=== PATIENT | male | born 1950 | race Caucasian/White ===

== ENCOUNTER 2017-11-12 07:59 | Outpatient (CLI) | payer MEDICARE ==
[~2017-11-12] VITALS: Ht 182.9 cm; Wt 89.1 kg
--- NOTE | ~2017-11-12 | HEMODYNAMI ---
PATIENT:LEROY FLOREZ MEDICAL RECORD: [id number] : 46 [facility] [id number] ADMISSION DATE: 11/12/17 Generatedon:11/13/201711:09 Patient name: LEROY FLOREZ Patient #: [id number] SSN: : 1950 Date of study: 11/13/2017 Page: Of Hemodynamic Procedure Report Patient Data Patient Demographics Procedure consent was obtained First Name: LEROY Gender: Male Last Name: GAUTAM : 1950 [facility] Initial: L Age: 67 year(s) Patient #: [id number] Race: Unknown Additional ID: [id number] Contact details Address: [address] [place] [address] State: [place] City: [place] Zip code: [address] Past Medical History Allergies: No known allergies Admission Admission Data Admission Date: 11/12/2017 Admission Time: 7:59 Arrival Date: 11/12/2017 Arrival Time: 10:00 Admit Source: Other Insurance Payor: Medicare Room #: D.2117 Height (in.): 72 BSA: 2.11 (m2) Height (cm.): 182.88 BMI: 26.58 (kg/m2) Weight (lbs.): 196 Weight (kg.): 88.9 Lab Results Lab Result Date: 11/12/2017 Lab Result Time: 0:00 Biochemistry Name Units Result Min Max BUN mg/dl 15 --(--*-)-- 7 18 Creatinine mg/dl 0.9 --(-*--)-- 0.6 1.3 CBC Name Units Result Min Max Hemoglobin g/dl 13.5 --(*---)-- 13.5 17.5 Procedure Procedure Types Cath Procedure PCI Procedure Coronary Stent Coronary Stent Initial Procedure Description Procedure Date Procedure Date: 11/13/2017 Procedure Start Time: 10:56 Procedure End Time: 11:08 Procedure Staff Name Function Damian Huerta MD Performing Physician Sierra Eldridge RT Scrub Corin Martin RN Nurse Keith Aguiar RT Monitor Procedure Data Cath Procedure Fluoroscopy Diagnostic fluoroscopy Total fluoroscopy Time: 1.9 time: 1.9 min min Diagnostic fluoroscopy Total fluoroscopy dose: 409 dose: 409 mGy mGy Contrast Material Contrast Material Type Amount (ml) Isovue 300 56 Entry Location Entry Primary Successful Side Size Upsize Upsize Entry Closure Succes sful Closure Location (Fr) 1 (Fr) 2 (Fr) Remarks Device Remarks Femoral Right 6 Fr Exoseal artery Short Estimated blood loss: 10 ml Procedure Complications No complications Procedure Medications Medication Administration Route Dosage 0.9% NaCl I.V. ml/hr Oxygen NC 2 l/min Lidocaine 2% Heparin Flush Bag added to field 2 bags (1000units/500ml NS) Fentanyl I.V. 50 mcg Versed I.V. 1 mg Heparin Bolus I.V. 4000 units Fentanyl I.V. 50 mcg Hemodynamics Rest BSA: 2.11 (m2) HGB: 13.5 (g/dl) O2 Consumption: Estimated: 262.12 (ml/min) O2 Co nsumption indexed: Estimated:124.23 (ml/min/m) Heart Rate: 92 (bpm) Snapshots Pre Cath Intra NCS Post Cath Vital Signs Time Heart Resp SPO2 etCO2 NIBP (mmHg) Rhythm Pain Sedation Rate (ipm) (%) (mmHg) Status Level (bpm) 10:31:38 86 14 98 30.2 136/87(110) NSR 0 (11) 10(A) , No pain 10:35:45 89 16 98 32.4 140/96(120) NSR 0 (11) 10(A) , No pain 10:39:55 80 15 96 0 124/79(99) NSR 0 (11) 10(A) , No pain 10:44:05 83 15 96 0 126/74(96) NSR 0 (11) 10(A) , No pain 10:48:15 83 15 96 0 119/77(92) NSR 0 (11) 10(A) , No pain 10:52:25 81 16 96 8.2 124/72(101) NSR 0 (11) 10(A) , No pain 10:56:33 82 14 95 0 115/83(99) NSR 0 (11) 9(A) , No pain 11:00:38 82 16 95 0 120/78(96) NSR 0 (11) 9(A) , No pain 11:04:44 79 16 98 0 131/82(104) NSR 0 (11) 10(A) , No pain 11:08:54 82 13 97 1.5 133/87(111) NSR 0 (11) 10(A) , No pain Medications Time Medication Route Dose Verified Delivered Reason Notes Effectiveness by by 10:29:37 0.9% NaCl I.V. ml/hr Damian Coombs used for Deanna Martin RN procedure 10:29:45 Oxygen NC 2 Damian Turnery Per physician l/min Deanna Martin RN 10:29:53 Lidocaine 2% Damian Salgado for local Deanna Huerta MD anesthetic 10:29:59 Heparin Flush added 2 Damian Salgado used for Bag to bags Deanna Huerta MD procedure (1000units/500ml field NS) 10:55:40 Fentanyl I.V. 50 Damian Ervinfany for sedation mcg Deanna Martin RN 10:55:58 Versed I.V. 1 mg Damian Ervinfany for sedation Deanna Martin RN 10:58:53 Heparin Bolus I.V. 4000 Damian Ervinfany for verifi ed units Deanna Martin RN anticoagulation by 10:59:17 Fentanyl I.V. 50 Damian Coombs for sedation mcg Deanna Martin RN Procedure Log Time Note 10:15:14 Mariama Nayak RT(R) sent for patient. Start room use. 10:23:28 Patient Height : 72 inches 10:23:28 Patient Weight : 196 lbs 10:23:46 Informed consent obtained and on chart 10:24:20 Time tracking: Regular hours 10:24:24 Plan of Care:Hemodynamics will remain stable., Cardiac rhythm will remain stable., Comfort level will be maintained., Respiratory function will remain adequate., Patient/ family verbilizes understanding of procedure., Procedure tolerated without complication., Recovers from procedure without complications.. 10:24:28 Patient received from Med II to CCL 2 Alert and oriented. Tansferred to table in Supine position. 10:24:29 Warm blankets applied, and yaquelin hugger turned on for patient comfort. 10:24:30 Correct patient and procedure confirmed by team. 10:24:30 ECG and BP/O2 sat monitors applied to patient. 10:27:03 Vital chart was started 10:27:04 Baseline sample Acquired. 10:27:09 Full Disclosure recording started 10:27:14 H&P Date Dictated: 11/13/2017 Within 30 days and on chart., H&P Addendum completed by physician on day of procedure. (MUST COMPLETE FOR ALL OUTPATIENTS). 10:27:15 Pre-procedure instructions explained to patient. 10:27:16 Pre-op teaching completed and patient verbalized understanding. 10:27:17 Family in waiting room. 10:27:18 Patient NPO since Midnight. 10:27:23 Is the patient allergic to Iodine/contrast media? No. 10:27:24 Was the patient premedicated? No 10:27:53 Is patient on blood thinner?Yes 10:27:56 ACC The patient was administered the following blood thiners within the last 24 hours: ACCPlavix 10:27:57 Patient diabetic? No. 10:28:00 Previous problem with sedation/anesthesia? No ? 10:28:01 Snore? Yes 10:28:02 Sleep apnea? No 10:28:03 Deviated septum? No 10:28:03 Opens mouth fully? Yes 10:28:04 Sticks out tongue? Yes 10:28:06 Airway obstruction? No ? 10:28:10 Dentures? Yes in tight 10:28:34 Pre procedure: right dorsailis pedis pulse 2+ Normal; easily identifiable; not easily obliterated 10:28:38 Pre procedure: left dorsailis pedis pulse 2+ Normal; easily identifiable; not easily obliterated 10:28:52 Patient pain scale 0/10 ?. 10:29:04 IV patent on arrival in left forearm with 0.9% NaCl at O. 10:29:11 Lab results completed and on chart. 10:29:19 Right groin area was prepped with chlora-prep and draped in sterile fashion 10:29:20 Alarms reviewed by R. N. 10:29:20 Sharps counted by scrub and verified by R.N. 10:29:37 0.9% NaCl ml/hr I.V. was administered by Corin Martin RN; used for procedure; 10:29:45 Oxygen 2 l/min NC was administered by Corin Martin RN; Per physician; 10::53 Lidocaine 2% was administered by Damian Huerta MD; for local anesthetic; 10::59 Heparin Flush Bag (1000units/500ml NS) 2 bags added to field was administered by Damian Huerta MD; used for procedure; :53:58 Use device set CATH PACK 10:54:05 ACIST Syringe (82819) opened to sterile field. 10:54:06 ACIST Hand Control (89339) opened to sterile field. 10:54:06 ACIST Manifold (32489) opened to sterile field. 10:54:07 Medline Cath Pack ([id number]) opened to sterile field. 10:54:07 Bag Decanter (2002S) opened to sterile field. 10:54:08 DIAGNOSTIC WIRE .035 260cm J wire (904210) opened to sterile field. 10:54:10 INFLATOR Merit BasixCompak (VY4413) opened to sterile field. 10:54:11 SHEATH 6FR Chinqu[place]in (WFB094) opened to sterile field. 10:54:27 GUIDE 6FR XB 4.0 catheter ([id number]) opened to sterile field. 10:54:32 Baseline sample Acquired. 10:54:40 Rhythm: sinus rhythm 10:54:47 Physician arrived 10:54:48 --------ALL STOP TIME OUT------ 10:54:48 Final Timeout: patient, procedure, and site verified with staff and physician. All members of the team are in agreement. 10:54:49 Right groin site verified by team. 10:54:52 Physical assessment completed. ASA score P 2 - A patient with mild systemic disease as per Damian Huerta MD. 10:54:55 Sedation plan: IV Moderate Sedation Medication:Versed, Fentanyl 10:55:40 Fentanyl 50 mcg I.V. was administered by Corin Martin RN; for sedation; ::58 Versed 1 mg I.V. was administered by Corin Martin RN; for sedation; 10:56:24 Zero performed for pressure channel P1 10:56:31 Procedure started. 10:56:33 Local anesthetic to right femoral artery with Lidocaine 2% by Damian Huerta MD.INITIAL ACCESS ONLY 10:57:21 A 6 Fr Short sheath was inserted into the Right Femoral artery 10:57:32 6 Fr xb 4.0 guide catheter was inserted over the wire 10:58:53 Heparin Bolus 4000 units I.V. was administered by Corin Martin RN; for anticoagulation; verified by 10:59:17 Fentanyl 50 mcg I.V. was administered by Corin Martin RN; for sedation; 11:00:33 CHOICE PT Extra Support J 300cm guide wire ([id number]) opened to sterile field. 11:00:41 choice pt es wire advanced. 11:01:29 Wire advanced across lesion. 11:02:02 Inflation Number: 1 A STUART OTW 3.0 x 38 stent ([id number]) was prepped and advanced across the Mid CX. The stent was deployed at 15 CANDICE for 0:10 (min:sec). 11:02:31 Stent catheter was removed intact over wire. 11:02:31 Wire removed. 11:02:32 Guide catheter removed. 11:02:37 EXOSEAL 6Fr (EX600) opened to sterile field. 11:03:07 Sheath removed intact; hemostasis achieved with Exoseal to the Right Femoral artery. 11:03:09 Procedure ended.(Physican Out) 11:06:16 Fluoroscopy time 01.90 minutes. 11:06:20 Fluoroscopy dose: 409 mGy 11:06:20 Flurop Dose total: 409 11:06:23 Contrast amount:Isovue 300 56ml. 11:06:25 Sharps counted by scrub and verified by R.N. 11:06:26 Insertion/operative site no bleeding no hematoma. 11:06:29 Post-op/insertion site Right Femoral artery dressed using a 4 x 4 and Tegaderm. 11:06:36 Post right femoral artery:stable, soft, clean and dry 11:06:38 Post Procedure Pulses reassessed and unchanged 11:06:40 Post-procedure physical assessment completed. ASA score P 2 - A patient with mild systemic disease as per Damian Huerta MD. 11:06:42 Post procedure rhythm: unchanged. 11:06:45 Estimated blood loss: 10 ml 11:06:46 Post procedure instruction explained to patient.Patient verbalizes understanding. 11:06:47 Patient needs reinforcement of post procedure teaching. 11:07:18 Procedure type changed to Cath procedure, PCI procedure, Coronary Stent, Coronary Stent Initial 11:08:09 Procedure and supply charges have been captured, reviewed, submitted and are correct. 11:08:12 Procedure Complication : No complications 11:08:14 Vital chart was stopped 11:08:15 See physician's report for complete and final results. 11:08:17 Report given to PCU. 11:08:19 Patient transfered to PCU with Stretcher. 11:08:21 Procedure ended. 11:08:21 Full Disclosure recording stopped 11:08:27 End room use (Document Last) Intervention Summary Intervention Notes Time ActionType Lesion and Equipment Action# Pressure Duration Attributes Used 11:02:02 Place stent Mid CX STUART OTW 3.0 1 15 00:10 x 38 stent ([id number]) Device Usage Item Name Manufacture Quantity Catalog Number Hospital Part Current [facility] Lot# / Charge Number Stock Stock Serial# Code ACIST Syringe Acist 1 49298 171561 702889 132578 20 (31618) Medical Systems Inc ACIST Hand Acist 1 91823 164613 435860 535796 5 Control Medical (00871) Systems Inc ACIST Acist 1 24040 024572 582634 750668 5 Manifold Medical (60149) Systems Inc Medline Cath Cardinal 1 [id number] 599243 91615 209122 5 [facility] ([id number]) Bag Decanter Microtek 1 2001S 323965 18415 061060 5 (2001S) Medical Inc. DIAGNOSTIC St Juan 1 577554 249304 903275 718327 30 WIRE .035 260cm J wire (527287) INFLATOR Roseonly 1 WM1511 310509 497643 674559 15 [facility] BasixCompak (VZ5667) SHEATH 6FR Terumo 1 RKQ903 107336 953155 686583 40 Chinquapin (DFI174) GUIDE 6FR XB Cardinal 1 [id number] 800355 985601 121628 2 4.0 PathCentral (47121893) CHOICE PT Welsh 1 [id number] 963834 518648 463728 5 Extra Support Scientific J 300cm guide wire ([id number]) STUART OTW 3.0 Medtronic 1 [id number] 272003 7084184 062681 5 [id number] x 38 stent ([id number]) EXOSEAL 6Fr Cardinal 1 EX600 188655 570077 137212 10 (EX600) Health Signature Audit [place] Stage Time Signature Unsigned Intra-Procedure 11/13/2017 Keith Aguiar 11:09:16 AM RT(R) Signatures Monitor : Keith Aguiar RT Signature : Date : Time : [address] [address]
--- NOTE | ~2017-11-12 | OP ---
PATIENT NAME: LEROY FLOREZ MEDICAL RECORD: [id number] :46 LOCATION:D.CAT ADMISSION DATE: SURGEON: JACINTO PIERRE MD DATE OF OPERATION: 11/13/2017 PROCEDURES: 1. PTCA stent to left circumflex. 2. Selective coronary angiography. INDICATION: Angina and coronary artery disease. PROCEDURE IN DETAIL: After informed consent was obtained and after a detailed explanation of the risks, benefits as well as alternative therapies, the patient elected to proceed with angiogram and angioplasty. The right femoral area was prepped and draped in normal sterile fashion. The right femoral artery was cannulated via modified Seldinger technique with placement of a 6-Uzbek sheath. All catheters exchanged through this sheath. FINDINGS: The left circumflex has a long area of 80% stenosis in the proximal mid aspect. This was addressed with a 3.0 x 38 mm Avi stent. Result was 0% residual stenosis. OVERALL IMPRESSION: Successful percutaneous transluminal coronary angioplasty stent of the left circumflex going from 80% initial stenosis to 0% residual stenosis. TRANSINT:[id number] Voice Confirmation ID: [id number] DOCUMENT ID: [id number] JACINTO PIERRE MD at 1148 CC: [id number] DICTATION DATE: 11/13/[address] WORKER: 11/13/17 1223 DEP CLI 11/13/[address] [address]
--- NOTE | ~2017-11-12 | OP ---
PATIENT NAME: LEROY FLOREZ MEDICAL RECORD: [id number] :46 LOCATION:D.CAT ADMISSION DATE: SURGEON: JACINTO PIERRE MD DATE OF OPERATION: 11/12/2017 PROCEDURES: 1. PTCA stent LAD. 2. Intravascular ultrasound of the LAD. 3. Left heart catheterization. 4. Selective coronary angiography. 5. Left ventriculogram. INDICATION: Angina and coronary artery disease. PROCEDURE IN DETAIL: After informed consent was obtained and after a detailed explanation of risks, benefits as well as alternative therapies, the patient elected to proceed with angiogram and angioplasty. The right radial area is prepped and draped in normal sterile fashion. Right radial artery was cannulated via modified Seldinger technique with placement of 6-Setswana sheath. All catheters exchanged through this sheath. FINDINGS: Left ventriculogram was performed in standard 30-degree KHAN view, reveals global hypokinesis. Overall ejection fraction in the 30% range. SELECTIVE CORONARY ANGIOGRAPHY: 1. Left main showed no significant angiographic disease. 2. Left anterior descending has greater than 75% stenosis throughout the proximal aspect confirmed by intravascular ultrasound. 3. The left circumflex has 80% to 90% stenosis throughout the mid vessel. 4. The right coronary has 70% to 80% stenosis in the mid vessel. PTCA STENT OF THE LAD: The stent used is a 3.5 x 38 mm [place]. Result was 0% residual stenosis. OVERALL IMPRESSION: Successful percutaneous transluminal coronary angioplasty stent of the left anterior descending going from a long area of 75% to 80% initial stenosis to 0% residual stenosis. PLAN: PTCA stent of the left circumflex tomorrow and the RCA in the near future. TRANSINT:[id number] Voice Confirmation ID: [id number] DOCUMENT ID: [id number] JACINTO PIERRE MD at 1148 CC: [id number] DICTATION DATE: 11/12/17 1104 LEGAL RECRUITER: 11/12/17 1124 [facility] CLI 11/13/[address] [address]
--- NOTE | ~2017-11-12 | DS ---
PATIENT:LEROY FLOREZ :46 MEDICAL RECORD: [id number] DISCHARGE SUMMARY ADMISSION DATE: 11/12/17 DISCHARGE DATE: 11/13/17 DISCHARGE DIAGNOSES: 1. Unstable angina. 2. Coronary artery disease. 3. Percutaneous transluminal coronary angioplasty stent to left anterior descending and left circumflex this admission. HOSPITAL COURSE: This is a gentleman who presents with unstable anginal symptomatology, found to have 3-vessel coronary artery disease, underwent successful PTCA stent of the LAD and circumflex. Discharged home with the addition of aspirin and Plavix to his medical regimen. He will follow up with [facility] within the next week for PTCA stent of the RCA. TRANSINT:[id number] Voice Confirmation ID: [id number] DOCUMENT ID: [id number] JACINTO PIERRE MD at 1148 CC: [id number] DICTATION DATE: 11/13/17 1202 REWRITER: 11/13/17 1231 DEP CLI 11/13/17 [id number] [place] [address]
--- NOTE | ~2017-11-12 | HEMODYNAMI ---
PATIENT:LEROY FLOREZ MEDICAL RECORD: [id number] : 46 LOCATION:D.CAT ADMISSION DATE: 11/12/17 Generatedon:11/12/201711:06 Patient name: LEROY FLOREZ Patient #: [id number] SSN: : 1950 Date of study: 11/12/2017 Page: Of Hemodynamic Procedure Report Patient Data Patient Demographics Procedure consent was obtained First Name: LEROY Gender: Male Last Name: GAUTAM : 1950 Middle Initial: L Age: 67 year(s) Patient #: [id number] Race: Unknown Additional ID: [id number] Contact details Address: [address] [place] [address] State: [place] City: [place] Zip code: [address] Past Medical History Allergies: No known allergies Admission Admission Data Admission Date: 11/12/2017 Admission Time: 7:59 Arrival Date: 11/12/2017 Arrival Time: 10:00 Admit Source: Other Insurance Payor: Medicare Height (in.): 72 BSA: 2.11 (m2) Height (cm.): 182.88 BMI: 26.58 (kg/m2) Weight (lbs.): 196 Weight (kg.): 88.9 Lab Results Lab Result Date: 11/12/2017 Lab Result Time: 0:00 Biochemistry Name Units Result Min Max BUN mg/dl 15 --(--*-)-- 7 18 Creatinine mg/dl 0.9 --(-*--)-- 0.6 1.3 CBC Name Units Result Min Max Hemoglobin g/dl 13.5 --(*---)-- 13.5 17.5 Procedure Procedure Types Cath Procedure Diagnostic Procedure [facility] w/Coronaries FFR/IVUS Intra-Coronary IVUS Initial PCI Procedure Coronary Stent Coronary Stent Initial Miscellaneous Procedures Moderate Sedation up to 15 minutes Procedure Description Procedure Date Procedure Date: 11/12/2017 Procedure Start Time: 10:48 Procedure End Time: 11:05 Procedure Staff Name Function Damian Huerta MD Performing Physician Mariama Nayak RT Monitor Sierra Chente RT Scrub Corin Martin RN Nurse Procedure Data Cath Procedure Fluoroscopy Diagnostic fluoroscopy Total fluoroscopy Time: 3.8 time: 3.8 min min Diagnostic fluoroscopy Total fluoroscopy dose: dose: 1026 mGy 1026 mGy Contrast Material Contrast Material Type Amount (ml) Isovue 300 99 Entry Location Entry Primary Successful Side Size Upsize Upsize Entry Closure Thomson ccessful Closure Location (Fr) 1 (Fr) 2 (Fr) Remarks Device Remarks Radial Right 6 Fr Mechanical TR band artery Short Compression Estimated blood loss: 10 ml Diagnostic catheters Device Type Used For End Catheter Placement DIAGNOSTIC [place] 110cm 5 Procedure Fr catheter ([id number]) Procedure Complications No complications Procedure Medications Medication Administration Route Dosage 0.9% NaCl I.V. 100 ml/hr Oxygen NC 2 l/min Lidocaine 2% added to field 20 Heparin Flush Bag added to field 2 bags (1000units/500ml NS) Radial Cocktail added to field 1 syringe (Verapomil 2mg/Nitro 400mcg/Heparin 1500units) Fentanyl I.V. 50 mcg Versed I.V. 1 mg Fentanyl I.V. 50 mcg Versed I.V. 1 mg Heparin Bolus I.V. 4000 units Hemodynamics Rest BSA: 2.11 (m2) O2 Consumption: Estimated: 250.77 (ml/min) O2 Consumption indexed : Estimated:118.85 (ml/min/m) Heart Rate: 78 (bpm) Pressure Samples Time Site Value (mmHg) Purpose Heart Use Rate(bpm) 10:50 AO 68/29(47) Snapshot 78 Snapshots Pre Cath Intra NCS Post Cath Vital Signs Time Heart Resp SPO2 etCO2 NIBP (mmHg) Rhythm Pain Sedation Rate (ipm) (%) (mmHg) Status Level (bpm) 10:25:02 79 23 99 29.1 118/80(105) NSR 0 (11) 10(A) , No pain 10:29:10 82 20 98 27.6 114/76(101) NSR 0 (11) 10(A) , No pain 10:33:16 80 18 98 0 111/77(95) NSR 0 (11) 10(A) , No pain 10:37:22 80 17 97 0 96/74(84) NSR 0 (11) 10(A) , No pain 10:41:25 76 15 98 13.4 100/61(82) NSR 0 (11) 9(A) , No pain 10:45:27 78 15 96 23.1 106/69(91) NSR 0 (11) 9(A) , No pain 10:49:33 78 15 97 0 101/66(85) NSR 0 (11) 9(A) , No pain 10:53:37 79 14 95 0 98/63(79) NSR 0 (11) 9(A) , No pain 10:57:43 79 16 95 0 95/55(72) NSR 0 (11) 9(A) , No pain 11:01:42 76 14 96 0.7 102/69(83) NSR 0 (11) 10(A) , No pain 11:05:46 73 13 94 11.9 101/67(80) NSR 0 (11) 10(A) , No pain Medications Time Medication Route Dose Verified Delivered Reason Note s Effectiveness by by 10:24:26 0.9% NaCl I.V. 100 Damian Turnery used for ml/hr Deanna Martin RN procedure 10:24:37 Oxygen NC 2 l/min Damian Coombs Per physician Deanna Martin RN 10:24:44 Lidocaine 2% added 20ml Damian Damian for local to vial Deanna Huerta MD anesthetic field 10:24:51 Heparin Flush added 2 bags Damian Salgado used for Bag to Deanna Huerta MD procedure (1000units/500ml field NS) 10:25:43 Radial Cocktail added 1 Damian Damian for (Verapomil to syringe Deanna Huerta MD vasodilation 2mg/Nitro field 400mcg/Heparin 1500units) 10:39:06 Fentanyl I.V. 50 mcg Damian Ervinfany for sedation Deanna Martin RN 10:39:15 Versed I.V. 1 mg Damian Ervinfany for sedation Deanna Martin RN 10:46:36 Fentanyl I.V. 50 mcg Damian Ervinfany for sedation Deanna Martin RN 10:46:43 Versed I.V. 1 mg Damian Ervinfany for sedation Deanna Martin RN 10:54:42 Heparin Bolus I.V. 4000 Damian Corin for veri fied units Tauth MD Martin RN anticoagulation by Procedure Log Time Note 10:03:17 Mariama Nayak RT(R) sent for patient. Start room use. 10:03:19 Time tracking: Regular hours 10::23 Plan of Care:Hemodynamics will remain stable., Cardiac rhythm will remain stable., Comfort level will be maintained., Respiratory function will remain adequate., Patient/ family verbilizes understanding of procedure., Procedure tolerated without complication., Recovers from procedure without complications.. 10:16:15 Patient Height : 72 inches 10:16:18 Patient Weight : 196 lbs 10:16:18 Admit Source: Other 10:16:23 Insurance Payor : Medicare 10:16:32 Arrival Date: 11/12/2017 10:00:00 AM 10:20:13 Lab Result : Creatinine 0.9 mg/dl 10:20:13 Lab Result : BUN 15 mg/dl 10:20:13 Lab Result : Hemoglobin 13.5 g/dl 10:20:35 Patient received from Pre/Post Procedure Room to CCL 2 Alert and oriented. Tansferred to table in Supine position. 10:20:36 Warm blankets applied, and yaquelin hugger turned on for patient comfort. 10:20:37 Correct patient and procedure confirmed by team. 10:20:39 Signed procedure consent form obtained from patient. 10:20:40 ECG and BP/O2 sat monitors applied to patient. 10:20:52 H&P Date Dictated: 11/05/2017 Within 30 days and on chart., H&P Addendum completed by physician on day of procedure. (MUST COMPLETE FOR ALL OUTPATIENTS). 10:20:54 Pre-procedure instructions explained to patient. 10:20:58 Family in waiting room. 10:21:01 Patient NPO since Midnight. 10:21:10 Patient allergic to No known allergies 10:21:15 Is the patient allergic to Iodine/contrast media? No. 10:21:17 Was the patient premedicated? Yes 10:23:59 Vital chart was started 10:24:26 0.9% NaCl 100 ml/hr I.V. was administered by Corin Martin RN; used for procedure; 10:24:37 Oxygen 2 l/min NC was administered by Corin Martin RN; Per physician; 10:24:44 Lidocaine 2% 20ml vial added to field was administered by Damian Huerta MD; for local anesthetic; 10:24:48 ACC The patient was administered the following blood thiners within the last 24 hours: ACCPlavix 10:24:50 Patient diabetic? No. 10:24:51 Heparin Flush Bag (1000units/500ml NS) 2 bags added to field was administered by Damian Huerta MD; used for procedure; 10:24:53 Previous problem with sedation/anesthesia? No ? 10:24:54 Snore? Yes 10:24:55 Sleep apnea? No 10:24:56 Deviated septum? No 10:24:56 Opens mouth fully? Yes 10:24:57 Sticks out tongue? Yes 10:24:58 Airway obstruction? No ? 10:25:04 Dentures? Yes in tight 10:25:08 Pre procedure: right dorsailis pedis pulse 2+ Normal; easily identifiable; not easily obliterated 10:25:10 Pre procedure: left dorsailis pedis pulse 2+ Normal; easily identifiable; not easily obliterated 10:25:13 Patient pain scale 0/10 ?. 10:25:19 IV patent on arrival in left forearm with 0.9% NaCl at [facility]. 10:25:22 Lab results completed and on chart. 10:25:26 Right Radial & Right Groin area was prepped with chlora-prep and draped in sterile fashion 10:25:27 Alarms reviewed by R. N. 10:25:27 Sharps counted by scrub and verified by R.N. 10:25:43 Radial Cocktail (Verapomil 2mg/Nitro 400mcg/Heparin 1500units) 1 syringe added to field was administered by Damian Huerta MD; for vasodilation; 10:37:19 Zero performed for pressure channel P1 10:38:32 Physician paged 10:38:34 Physician arrived 10:38:35 --------ALL STOP TIME OUT------ 10:38:35 Final Timeout: patient, procedure, and site verified with staff and physician. All members of the team are in agreement. 10:38:39 Right Radial & Right Groin site verified by team. 10:38:44 Physical assessment completed. ASA score P 2 - A patient with mild systemic disease as per Damian Huerta MD. 10:38:47 Sedation plan: IV Moderate Sedation Medication:Versed, Fentanyl 10:39:06 Fentanyl 50 mcg I.V. was administered by Corin Martin RN; for sedation; 10:39:15 Versed 1 mg I.V. was administered by Corin Martin RN; for sedation; 10:39:26 Use device set Radial Dx or PCI 10:39:30 ACIST Syringe (55180) opened to sterile field. 10:39:31 Medline Cath Pack ([id number]) opened to sterile field. 10:39:32 Bag Decanter (2002S) opened to sterile field. 10:39:33 SHEATH 6FR Slender ([id number]) opened to sterile field. 10:39:35 DIAGNOSTIC WIRE .035 260cm J wire (693311) opened to sterile field. 10:39:38 Tegaderm 4 x 4 (1626W) opened to sterile field. 10:39:40 MBrace Wrist Support ([id number]) opened to sterile field. 10:39:42 NEEDLE Cook 21G 4cm Radial (M96753) opened to sterile field. 10:39:44 TR BAND Standard ([id number]) opened to sterile field. 10:46:36 Fentanyl 50 mcg I.V. was administered by Corin Martin RN; for sedation; 10:46:43 Versed 1 mg I.V. was administered by Corin Martin RN; for sedation; 10:47:59 Procedure started. 10:48:00 Full Disclosure recording started 10:48:42 Local anesthetic to right radial artery with Lidocaine 2% by Damian Huerta MD.INITIAL ACCESS ONLY 10:49:44 A DIAGNOSTIC [place] 110cm 5 Fr catheter ([id number]) was advanced over the wire and used for Procedure. 10:49:47 ACIST Hand Control (71527) opened to sterile field. 10:49:48 ACIST Manifold (51664) opened to sterile field. 10:50:50 EF : 35 % 10:50:56 LV hemodynamics recorded. 10:51:03 RCA angiography performed. 10:51:40 Catheter removed. 10:52:04 GUIDE 5FR EBU 3.5 catheter (AI0IEM35) opened to sterile field. 10:52:14 LCA angiography performed. 10:54:07 Proceeding to intervention. 10:54:42 Heparin Bolus 4000 units I.V. was administered by Corin Martin RN; for anticoagulation; verified by 10:55:15 CHOICE PT Extra Support 182cm wire ([id number]) opened to sterile field. 10:55:16 INFLATOR Merit BasixCompak (ZM4327) opened to sterile field. 10:55:17 [place] IVUS Catheter (98121C) opened to sterile field. 10:55:35 choice pt ex wire advanced. 10:55:37 Wire advanced across lesion. 10:55:42 IVUS catheter advanced over wire. 10:56:38 IVUS catheter removed over wire. 10:59:42 Inflation Number: 1 A STUART RX 3.5 x 38 stent ([id number]) was prepped and advanced across the Prox LAD. The stent was deployed at 17 CANDICE for 0:13 (min:sec). 11:02:57 A 6 Fr Short sheath was inserted into the Right Radial artery 11:02:57 Sheath removed intact; hemostasis achieved with Mechanical Compression to the Right Radial artery. 11:03:06 Procedure ended.(Physican Out) 11:03:19 Fluoroscopy time 03.80 minutes. 11:03:26 Fluoroscopy dose: 1026 mGy 11:03:26 Flurop Dose total: 1026 11:03:32 Contrast amount:Isovue 300 99ml. 11:03:33 Sharps counted by scrub and verified by R.N. 11:03:36 TR band inflated with 13cc of air. 11:03:37 Insertion/operative site no bleeding no hematoma. 11:03:42 Post Procedure Pulses reassessed and unchanged 11:03:48 Post-procedure physical assessment completed. ASA score P 2 - A patient with mild systemic disease as per Damian Huerta MD. 11:03:52 Post procedure rhythm: unchanged. 11:03:55 Estimated blood loss: 10 ml 11:03:59 Post procedure instruction explained to patient.Patient verbalizes understanding. 11:04:46 Procedure type changed to Cath procedure, Diagnostic procedure, LHC, LHC w/Coronaries, FFR/IVUS, Intra-Coronary IVUS Initial, PCI procedure, Coronary Stent, Coronary Stent Initial, Miscellaneous Procedures, Moderate Sedation up to 15 minutes 11:04:48 Procedure and supply charges have been captured, reviewed, submitted and are correct. 11:05:15 Procedure Complication : No complications 11:05:17 Vital chart was stopped 11:05:18 See physician's report for complete and final results. 11:05:20 Report given to Pre/Post Procedure Room. 11:05:23 Patient transfered to Pre/Post Procedure Room with Stretcher. 11:05:25 Procedure ended. 11:05:25 Full Disclosure recording stopped 11:05:39 End room use (Document Last) Intervention Summary Intervention Notes Time ActionType Lesion and Equipment Used Action# Pressure Duration Attributes 10:59:[address] stent Prox LAD STUART RX 3.5 x 1 17 00:13 38 stent ([id number]) Device Usage Item Name Manufacture Quantity Catalog Number Hospital Part Current M inimal Lot# / Charge Number Stock Stock Serial# Code ACIST Syringe Acist 1 50693 695969 601321 795006 2 0 (38490) Medical Systems Inc Medline Cath Cardinal 1 [id number] 930515 39310 469064 5 Oneexchangestreet ([id number]) Bag Decanter Microtek 1 075175 24542 432829 5 () Medical Inc. SHEATH 6FR Terumo 1 [id number] 777799 245227 845847 4 0 Slender ([id number]) DIAGNOSTIC [place] 1 231988 676270 494521 339066 3 0 WIRE .035 260cm J wire (468682) Tegaderm 4 x 4 3M 1 1626W 586544 231761 940234 5 (1626W) MBrace Wrist Advanced 1 140-0250-00 071780 87500 596878 5 Support Vascular ([id number]) Dynamics NEEDLE Ramesys (e-Business) Services Medical 1 F10062 537071 320587 900345 5 21G 4cm Radial (F42148) TR BAND Terumo 1 NAT24-VPO 552483 322147 962370 4 0 Standard ([id number]) DIAGNOSTIC Terumo 1 40-0263 737018 638186 701890 5 [place] 110cm 5 Fr catheter (455600) ACIST Hand Acist 1 73126 372351 766701 069281 5 Control Medical (91326) Systems Inc ACIST Manifold Acist 1 26718 083375 812584 398996 5 (21557) Medical Systems Inc GUIDE 5FR EBU Medtronic 1 [id number] 733959 971604 778175 1 3.5 catheter ([id number]) CHOICE PT [place] 1 [id number] 330543 419406 828654 5 Extra Support Scientific 182cm wire ([id number]) INFLATOR Merit Merit 1 VX9916 803493 762641 627359 1 5 [facility] (QW7924) [place] 1 64855T 515852 246190 302120 8 [place] IVUS Catheter (53360W) STUART RX 3.5 x Medtronic 1 [id number] 592334 7881096 011432 5 [id number] 38 stent ([id number]) Signature Audit [place] Stage Time Signature Unsigned Intra-Procedure 11/12/2017 Mariama Nayak 11:06:13 AM RT(R) Signatures Monitor : Mariama Nayak Signature : RT Date : Time : [place] [id number] [facility] [address]
[2017-11-12] MEDS ORDERED: PLAVIX75 MG PO (08:41)
[2017-11-12 08:47] VITALS: BP 123/78; BMI 26.6
[2017-11-12 09:08] LABS: HEMATOCRIT 38.6 % (42.0-54.0); HEMOGLOBIN 13.5 g/dL (13.5-17.5); LYMPHOCYTES 25.7 % (15-50); MCV 88.5 fL (80.0-100.0); MEAN PLATELET VOLUME 8.6 fL (7.4-10.4); NEUTROPHILS 61.3 % (40-80); PLATELET COUNT 221 10x3/uL (130-400); RBC 4.36 10x6/uL (4.20-6.10); RDW 12.8 % (11.5-14.5); WBC 5.3 10x3/uL (4.8-10.8)
[2017-11-12 09:30] LABS: CALC OSMOLALITY 277 mosm/kg (275-300); CALCIUM 8.7 mg/dL (8.5-10.1); CARBON DIOXIDE 24.3 mmol/L (21.0-32.0); CHLORIDE - SERUM 105 mmol/L (98-107); CREATININE - SERUM 0.9 mg/dL (0.6-1.3); GLUCOSE 118 mg/dL (74-106); POTASSIUM - SERUM 4.3 mmol/L (3.5-5.1); SODIUM 138 mmol/L (136-145); UREA NITROGEN 15 mg/dL (7-18); eGFR NON AFRICAN AMERICAN 89 mL/min (90-120)
[2017-11-12 13:29] VITALS: BP 130/80; Ht 182.9 cm; Wt 89.1 kg
[2017-11-12 20:00] VITALS: BP 120/64
[2017-11-13] VITALS: BP 113/76
[2017-11-13 04:00] VITALS: BP 109/72
[2017-11-13 09:10] VITALS: BP 133/84
[2017-11-13 12:16] VITALS: BP 146/85
[2017-11-13] MEDS ORDERED: ASPIRIN81 MG PO (13:33)
== END 2017-11-13 15:39 | disposition home or self-care (01) ==
LOC: D.M2 07:59 → D.CATH 07:59 → D.M2 13:00 → D.CATH 11-13 15:39
PROVIDERS: Internal Medicine Interventional Cardiology
DX: I25.119 Atherosclerotic heart disease of native coronary artery with unspecified angina pectoris (principal); R06.09 Other forms of dyspnea; Z01.812 Encounter for preprocedural laboratory examination
CPT/HCPCS: 93458; 92978; C9600 ×2

== ENCOUNTER 2017-11-18 07:40 | Outpatient (CLI) | payer MEDICARE ==
[~2017-11-18] VITALS: Ht 182.9 cm; Wt 89.1 kg
--- NOTE | ~2017-11-18 | HEMODYNAMI ---
PATIENT:LEROY FLOREZ MEDICAL RECORD: [id number] : 46 LOCATION:D.CAT ADMISSION DATE: 11/18/17 Generatedon:11/18/201710:54 Patient name: LEROY FLOREZ Patient #: [id number] SSN: : 1950 Date of study: 11/18/2017 Page: Of Hemodynamic Procedure Report Patient Data Patient Demographics Procedure consent was obtained First Name: LEROY Gender: Male Last Name: GAUTAM : 1950 Middle Initial: L Age: 67 year(s) Patient #: [id number] Race: Unknown Additional ID: [id number] Contact details Address: [address] [place] [address] State: [place] City: [place] Zip code: [address] Past Medical History Allergies: No known allergies Admission Admission Data Admission Date: 11/18/2017 Admission Time: 7:40 Lab Results Lab Result Date: 11/12/2017 Lab Result Time: 0:00 Biochemistry Name Units Result Min Max BUN mg/dl 15 --(--*-)-- 7 18 Creatinine mg/dl 0.9 --(-*--)-- 0.6 1.3 CBC Name Units Result Min Max Hemoglobin g/dl 13.5 --(*---)-- 13.5 17.5 Procedure Procedure Types Cath Procedure Diagnostic Procedure [facility] w/Coronaries PCI Procedure Coronary Stent Coronary Stent Initial Miscellaneous Procedures Moderate Sedation up to 15 minutes Procedure Description Procedure Date Procedure Date: 11/18/2017 Procedure Start Time: 10:34 Procedure End Time: 10:53 Procedure Staff Name Function Damian Huerta MD Performing Physician Mariama Nayak RT Monitor Miri Castillo RN Nurse Sierra Eldridge RT Scrub Procedure Data Cath Procedure Fluoroscopy Diagnostic fluoroscopy Total fluoroscopy Time: 3.5 time: 3.5 min min Diagnostic fluoroscopy Total fluoroscopy dose: 303 dose: 303 mGy mGy Contrast Material Contrast Material Type Amount (ml) Isovue 300 52 Entry Location Entry Primary Successful Side Size Upsize Upsize Entry Closure Thomson ccessful Closure Location (Fr) 1 (Fr) 2 (Fr) Remarks Device Remarks Radial Right 6 Fr Mechanical artery Short Compression Estimated blood loss: 10 ml Procedure Complications No complications Procedure Medications Medication Administration Route Dosage Oxygen NC 2 l/min Lidocaine 2% added to field 20 Heparin Flush Bag added to field 2 bags (1000units/500ml NS) 0.9% NaCl I.V. 100 ml/hr Radial Cocktail I.A. 1 syringe (Verapomil 2mg/Nitro 400mcg/Heparin 1500units) Versed I.V. 1 mg Fentanyl I.V. 50 mcg Versed I.V. 1 mg Fentanyl I.V. 50 mcg Heparin Bolus I.V. 4000 units Hemodynamics Rest HGB: 13.5 (g/dl) Heart Rate: 77 (bpm) Snapshots Pre Cath Intra NCS Post Cath Vital Signs Time Heart Resp SPO2 etCO2 NIBP Rhythm Pain Sedation Rate (ipm) (%) (mmHg) (mmHg) Status Level (bpm) 10:24:27 80 19 98 29.4 124/73(99) NSR 0 (11) 10(A) , No pain 10:28:37 81 16 99 35.4 118/79(93) NSR 0 (11) 10(A) , No pain 10:32:45 77 15 95 0 106/72(93) NSR 0 (11) 10(A) , No pain 10:36:53 78 16 95 27.1 95/62(73) NSR 0 (11) 9(A) , No pain 10:40:57 75 17 94 27.9 84/61(78) NSR 0 (11) 9(A) , No pain 10:45:43 80 16 95 28.6 99/62(83) NSR 0 (11) 9(A) , No pain 10:49:45 76 15 95 28.6 112/72(90) NSR 0 (11) 10(A) , No pain 10:53:45 0 No Cuff NSR 0 (11) 10(A) , No pain Medications Time Medication Route Dose Verified Delivered Reason Notes Effectiveness by by 10:24:37 Oxygen NC 2 l/min Damian Chery used for Deanna Castillo marketing financial analyst 10:24:43 Lidocaine 2% added 20ml Damian Salgado for local to vial Deanna Huerta MD anesthetic field 10:24:51 Heparin Flush added 2 bags Damian Salgado used for Bag to Deanna Huerta MD procedure (1000units/500ml field NS) 10:24:59 0.9% NaCl I.V. 100 Damian Chery Per ml/hr Deanna Castillo RN physician 10:32:21 Versed I.V. 1 mg Damian Chery for sedation Deanna Castillo RN 10:32:27 Fentanyl I.V. 50 mcg Damian Chery for sedation Deanna Castillo RN 10:35:16 Radial Cocktail I.A. 1 Damian Salgado for (Verapomil syringe Deanna Huerta MD vasodilation 2mg/Nitro 400mcg/Heparin 1500units) 10:35:21 Versed I.V. 1 mg Damian Chery for sedation Deanna Castillo RN 10:35:25 Fentanyl I.V. 50 mcg Damian Chery for sedation Deanna Castillo RN 10:36:08 Heparin Bolus I.V. 4000 Damian Chery for sedation verifie d units Deanna Castillo RN with dr huerta Procedure Log Time Note 10:14:51 Diagnostic Cath Status : Elective 10:15:12 Miri Castillo RN sent for patient. Start room use. 10:15:13 Time tracking: Regular hours 10:15:18 Plan of Care:Hemodynamics will remain stable., Cardiac rhythm will remain stable., Comfort level will be maintained., Respiratory function will remain adequate., Patient/ family verbilizes understanding of procedure., Procedure tolerated without complication., Recovers from procedure without complications.. 10:15:53 Patient received from Pre/Post Procedure Room to [facility] 2 Alert and oriented. Tansferred to table in Supine position. 10:15:55 Warm blankets applied, and yaquelin hugger turned on for patient comfort. 10:15:55 Correct patient and procedure confirmed by team. 10:15:57 Signed procedure consent form obtained from patient. 10:18:06 ECG and BP/O2 sat monitors applied to patient. 10:23:25 Vital chart was started 10:24:37 Oxygen 2 l/min NC was administered by Miri Castillo RN; used for procedure; 10:24:43 Lidocaine 2% 20ml vial added to field was administered by Damian Huerta MD; for local anesthetic; 10:24:51 Heparin Flush Bag (1000units/500ml NS) 2 bags added to field was administered by Damian Huerta MD; used for procedure; 10:24:59 0.9% NaCl 100 ml/hr I.V. was administered by Miri Castillo RN; Per physician; 10:30:30 Baseline sample Acquired. 10:30:31 Baseline sample Acquired. 10:30:35 Rhythm: sinus rhythm 10:30:37 Full Disclosure recording started 10:30:48 H&P Date Dictated: 11/14/2017 Within 30 days and on chart., H&P Addendum completed by physician on day of procedure. (MUST COMPLETE FOR ALL OUTPATIENTS). 10:30:50 Pre-procedure instructions explained to patient. 10:30:51 Family in waiting room. 10:30:53 Patient NPO since Midnight. 10:30:59 Patient allergic to No known allergies 10:31:02 Is the patient allergic to Iodine/contrast media? No. 10:31:04 Was the patient premedicated? Yes 10:31:05 Is patient on blood thinner?Yes 10:31:08 ACC The patient was administered the following blood thiners within the last 24 hours: ACCPlavix 10:31:10 Patient diabetic? No. 10:31:14 Snore? Yes 10:31:16 Sleep apnea? No 10:31:25 Patient pain scale 0/10 ?. 10:31:33 IV patent on arrival in left forearm with 0.9% NaCl at KVO. 10:31:47 Lab results completed and on chart. 10:31:51 Right Radial & Right Groin area was prepped with chlora-prep and draped in sterile fashion 10:31:52 Alarms reviewed by R. N. 10:31:52 Sharps counted by scrub and verified by R.N. 10:31:54 Physician paged 10:31:54 Physician arrived 10:31:55 --------ALL STOP TIME OUT------ 10:31:55 Final Timeout: patient, procedure, and site verified with staff and physician. All members of the team are in agreement. 10:31:58 Right Radial & Right Groin site verified by team. 10:32:03 Physical assessment completed. ASA score P 2 - A patient with mild systemic disease as per Damian Huerta MD. 10:32:07 Sedation plan: IV Moderate Sedation Medication:Versed, Fentanyl 10:32:21 Versed 1 mg I.V. was administered by Miri Castillo RN; for sedation; 10:32:27 Fentanyl 50 mcg I.V. was administered by Miri Castillo RN; for sedation; 10:32:32 Use device set Radial Dx or PCI 10:32:39 PCI Cath status Elective 10:32:42 ACIST Syringe (49052) opened to sterile field. 10:32:42 Medline Cath Pack ([id number]) opened to sterile field. 10:32:43 Bag Decanter (2002S) opened to sterile field. 10:32:44 SHEATH 6FR Slender ([id number]) opened to sterile field. 10:32:45 DIAGNOSTIC WIRE .035 260cm J wire (566271) opened to sterile field. 10:32:46 ACIST Hand Control (15403) opened to sterile field. 10:32:47 ACIST Manifold (88739) opened to sterile field. 10:32:48 Tegaderm 4 x 4 (1626W) opened to sterile field. 10:32:48 MBrace Wrist Support ([id number]) opened to sterile field. 10:33:11 GUIDE 6FR HS II SH catheter ([id number]) opened to sterile field. 10:33:16 Procedure started. 10:34:36 Local anesthetic to right radial artery with Lidocaine 2% by Damian Huerta MD.INITIAL ACCESS ONLY 10:34:45 A 6 Fr Short sheath was inserted into the Right Radial artery 10:35:03 6 Fr HS2 SH guide catheter was inserted over the wire 10:35:14 Zero performed for pressure channel P1 10:35:16 Radial Cocktail (Verapomil 2mg/Nitro 400mcg/Heparin 1500units) 1 syringe I.A. was administered by Damian Huerta MD; for vasodilation; 10:35:21 Versed 1 mg I.V. was administered by Miri Castillo RN; for sedation; 10:35:25 Fentanyl 50 mcg I.V. was administered by Miri Castillo RN; for sedation; 10:35:28 Zero performed for pressure channel P1 10:35:42 Zero performed for pressure channel P1 10:36:07 Zero performed for pressure channel P1 10:36:08 Heparin Bolus 4000 units I.V. was administered by Miri Castillo RN; for sedation; verified with dr huerta 10:36:25 Zero performed for pressure channel P1 10:38:01 Guide catheter removed. 10:38:32 GUIDE 6FR AR 2.0 SH catheter ([id number]) opened to sterile field. 10:39:11 Brinkley [place] Eagleye IVUS Catheter (96008C) opened to sterile field. 10:39:12 INFLATOR Merit BasixCompak (QT1292) opened to sterile field. 10:39:12 CHOICE PT Extra Support 182cm wire ([id number]) opened to sterile field. 10:39:40 6 Fr AR2 SH guide catheter was inserted over the wire 10:42:44 choice pt wire advanced. 10:43:12 Wire advanced across lesion. 10:43:19 IVUS catheter advanced over wire. 10:47:48 Inflation Number: 1 A STUART RX 3.0 x 18 stent ([id number]) was prepped and advanced across the Mid RCA. The stent was deployed at 17 CANDICE for 0:08 (min:sec). 10:47:56 Stent catheter was removed intact over wire. 10:47:57 Wire removed. 10:47:57 Guide catheter removed. 10:48:08 TR BAND Standard ([id number]) opened to sterile field. 10:50:40 Sheath removed intact; hemostasis achieved with Mechanical Compression to the Right Radial artery. 10:50:43 Procedure ended.(Physican Out) 10:51:06 Fluoroscopy time 03.50 minutes. 10:51:13 Flurop Dose total: 303 10:51:13 Fluoroscopy dose: 303 mGy 10:51:17 Contrast amount:Isovue 300 52ml. 10:51:18 Sharps counted by scrub and verified by R.N. 10:51:26 TR band inflated with 11cc of air. 10:51:27 Insertion/operative site no bleeding no hematoma. 10:51:31 Post Procedure Pulses reassessed and unchanged 10:51:34 Post-procedure physical assessment completed. ASA score P 2 - A patient with mild systemic disease as per Damian Huerta MD. 10:51:38 Post procedure rhythm: unchanged. 10:51:40 Estimated blood loss: 10 ml 10:51:42 Post procedure instruction explained to patient.Patient verbalizes understanding. 10:52:31 Procedure type changed to Cath procedure, Diagnostic procedure, LHC, LHC w/Coronaries, PCI procedure, Coronary Stent, Coronary Stent Initial, Miscellaneous Procedures, Moderate Sedation up to 15 minutes 10:52:31 Procedure and supply charges have been captured, reviewed, submitted and are correct. 10:53:17 Procedure Complication : No complications 10:53:20 Vital chart was stopped 10:53:23 Report given to Pre/Post Procedure Room. 10:53:27 Patient transfered to Pre/Post Procedure Room with Stretcher. 10:53:29 Procedure ended. 10:53:29 Full Disclosure recording stopped 10:53:32 End room use (Document Last) Intervention Summary Intervention Notes Time ActionType Lesion and Equipment Used Action# Pressure Duration Attributes 10:47:48 Place stent Mid RCA STUART RX 3.0 x 1 17 00:08 18 stent ([id number]) Device Usage Item Name Manufacture Quantity Catalog Number Hospital Part Current M inimal Lot# / Charge Number Stock Stock Serial# Code ACIST Syringe Acist 1 [id number] [id number] 391226 494408 2 0 (10094) Medical Systems Inc Medline Cath Cardinal 1 [id number] 054720 23434 816148 5 [facility] ([id number]) Bag Decanter Microtek 1 2001S 466322 45786 060103 5 (2001S) Medical Inc. SHEATH 6FR Terumo 1 [id number] 769288 749368 502260 4 0 Slender ([id number]) DIAGNOSTIC St Juan 1 691056 786554 774260 015469 3 0 WIRE .035 260cm J wire (227690) ACIST Hand Acist 1 45073 831897 831587 101983 5 Control Medical (08937) Systems Inc ACIST Manifold Acist 1 39974 780286 842577 133299 5 (56552) Medical Systems Inc Tegaderm 4 x 4 3M 1 1626W 895888 078777 392425 5 (1626W) MBrace Wrist Advanced 1 140-0250-00 612691 75529 793575 5 Support Vascular ([id number]) Dynamics GUIDE 6FR HS Medtronic 1 [id number] 523524 11974 909772 1 II SH catheter ([id number]) GUIDE 6FR AR Medtronic 1 [id number] 272733 46269 342052 1 2.0 SH catheter ([id number]) Brinkley Brinkley 1 70181W 645018 853719 240624 8 [place] Eagleye IVUS Catheter (11355B) INFLATOR Merit Merit 1 [id number] 278830 636285 405564 1 5 Ambio HealthnmTiqIQ Medical (SJ2858) CHOICE PT [place]quel 1 [id number] 101266 132381 569890 5 Extra Support Scientific 182cm wire ([id number]) STUART RX 3.0 x Medtronic 1 [id number] 243890 4508260 721371 5 [id number] 18 stent ([id number]) TR BAND Terumo 1 [id number] 260477 662335 053850 4 0 Standard ([id number]) Signature Audit [place] Stage Time Signature Unsigned Intra-Procedure 11/18/2017 Mariama Nayak 10:54:07 AM RT(R) Signatures Monitor : Mariama Nayak Signature : RT Date : Time : [facility] [address] [place] [address]
--- NOTE | ~2017-11-18 | HP ---
PATIENT: LEROY FLOREZ MEDICAL RECORD: [id number] ACCOUNT: [id number] LOCATION:[place] : 46 ADMISSION DATE: 11/18/17 HISTORY AND PHYSICAL EXAMINATION ADMITTING DIAGNOSES: 1. Angina. 2. Coronary artery disease. 3. Recent percutaneous transluminal coronary angioplasty stent to left anterior descending with concomitant disease, RCA. 4. Hypertension. 5. Hyperlipidemia. HISTORY OF PRESENT ILLNESS: This is a gentleman who presents with anginal symptomatology, found to have significant disease of all 3 vessels, underwent PTCA stent of the LAD and circumflex, now brought back for PTCA stent of the RCA in a staged fashion. REVIEW OF SYSTEMS: The patient reports easy bruising but reports no swollen glands. The patient reports no fever, no night sweats, no significant weight gain, no significant weight loss. No significant exercise tolerance. The patient reports no dry eyes, no irritation, no vision change. Patient reports no difficulty hearing and no ear pain. Patient reports no frequent nose bleeds or nose and sinus problems. Patient reports on arm pain on exertion. No shortness of breath while lying down. No history of heart murmur. Patient reports no cough, no wheezing or coughing up blood. Patient reports no abdominal pain, no vomiting. Normal appetite. No diarrhea and not vomiting blood. No nausea and no constipation. Patient reports no incontinence. No difficulty urinating. No hematuria. No increased frequency. Patient reports no muscle aches. No weakness, no arthralgias, no back pain. No swelling of the extremities. Patient reports no abnormal mole, no jaundice, no rashes. Reports no loss of consciousness. No weakness and no numbness. No seizures, dizziness, or headaches. The patient reports no depression, no sleep disturbance, feeling safe in a relationship and no alcohol abuse. Patient reports on fatigue. Reports no runny nose or sinus pressure. No itching, no hives, and no frequent sneezing. PHYSICAL EXAMINATION: GENERAL APPEARANCE: Well-nourished, well-developed, appears stated age. Level of distress, comfortable. PSYCHIATRIC: Mental status, alert, normal affect. Orientation, oriented to time, place and person. EYES: Lids and conjunctiva, noninjected. No discharge, no pallor. ENT: Lips, teeth, gums, normal dentition. Oropharynx, no cyanosis, no pallor. NECK: Carotid arteries, bilateral normal upstroke, no bruits, no thrills. JUGULAR VEINS: No jugular venous pressure or distention. CERVICAL LYMPH NODES: Nontender, nonenlarged. THYROID: Not enlarged. Nontender. No nodules. LUNGS: Respiratory effort, unlabored. CHEST: Normal curvature. No thoracic deformity. No chest wall tenderness. Percussion, resonant. Auscultation, clear. No wheezes, no rales, no rhonchi. CARDIOVASCULAR: Precordial exam, nondisplaced. No heaves or pericardial thrills. Rate and rhythm, regular. Heart sounds, normal S1, normal S2. No S3, no gallop, no rub. Systolic murmur, not heard. Diastolic murmur, not heard. EXTREMITIES: No cyanosis, no edema. Peripheral pulses, full and equal in all HISTORY AND PHYSICAL [id number] LEROY FLOREZ extremities, except as noted. No bruits appreciated. ABDOMEN: Soft, nondistended. Normal aorta. No bruit. Nontender. No masses. Liver, nontender, no hepatomegaly. Spleen, nontender, no splenomegaly. MUSCULOSKELETAL: No joint tenderness. No joint swelling. No erythema. NEUROLOGICAL: Normal gait, normal strength, normal tone. SKIN: Warm and dry. OVERALL IMPRESSION: Anginal symptomatology with significant disease of the right coronary artery. We will proceed with percutaneous transluminal coronary angioplasty stent of the right coronary artery. TRANSINT:[id number] Voice Confirmation ID: [id number] DOCUMENT ID: [id number] JACINTO PIERRE MD CC: [id number] DICTATION DATE: 11/18/17 1009 FISH ICER: 11/18/[address] [facility] [address] [place] [address]
--- NOTE | ~2017-11-18 | OP ---
PATIENT NAME: LEROY FLOREZ MEDICAL RECORD: [id number] :46 LOCATION:D.CAT ADMISSION DATE: SURGEON: JACINTO PIERRE MD DATE OF OPERATION: 11/18/2017 PROCEDURES: 1. PTCA stent RCA. 2. Intravascular ultrasound. 3. Selective coronary angiography. INDICATION: Angina and coronary artery disease. PROCEDURE IN DETAIL: After informed consent was obtained and after detailed explanation of risks, benefits as well as alternative therapies, the patient elected to proceed with angiogram and angioplasty. The right radial area was prepped and draped in normal sterile fashion. Right radial artery was cannulated via modified Seldinger technique with placement of 6-Icelandic sheath. All catheters exchanged through this sheath. FINDINGS: The right coronary has multiple previously placed stents. There is 75% to 80% stenosis after the previously placed stents confirmed by intravascular ultrasound. This was addressed with a 3.0 x 18 mm Jackson stent. Result was 0% residual stenosis. OVERALL IMPRESSION: Successful percutaneous transluminal coronary angioplasty stent of the right coronary artery going from 75% initial stenosis to 0% residual stenosis. TRANSINT:[id number] Voice Confirmation ID: [id number] DOCUMENT ID: [id number] JACINTO PIERRE MD CC: [id number] DICTATION DATE: 11/18/17 1048 GARAGEMAN: 11/18/17 1105 REG [facility] [address] [place] [id number]
[~2017-11-18 07:40] MED LIST: ASPIRIN81 MG PO; PLAVIX75 MG PO
[2017-11-18 08:01] VITALS: BP 124/77; Ht 182.9 cm; Wt 89.1 kg
[2017-11-18 08:22] LABS: BASOPHILS 0.3 % (0-2); EOSINOPHILS 3.3 % (0-7); HEMATOCRIT 41.8 % (42.0-54.0); HEMOGLOBIN 14.3 g/dL (13.5-17.5); IMMATURE GRANULOCYTES 0.2 % (0-5); LYMPHOCYTES 23.7 % (15-50); MCH 31.4 pg (26.0-34.0); MCHC 34.2 g/dL (31.0-37.0); MCV 91.7 fL (80.0-100.0); MEAN PLATELET VOLUME 9.5 fL (7.4-10.4); MONOCYTES 10.5 % (2-11); PLATELET COUNT 209 10x3/uL (130-400); RBC 4.56 10x6/uL (4.20-6.10); RDW 13.2 % (11.5-14.5); WBC 5.8 10x3/uL (4.8-10.8)
[2017-11-18 08:37] LABS: CALC OSMOLALITY 277 mosm/kg (275-300); CALCIUM 9.4 mg/dL (8.5-10.1); CARBON DIOXIDE 22.3 mmol/L (21.0-32.0); CHLORIDE - SERUM 105 mmol/L (98-107); GLUCOSE 123 mg/dL (74-106); POTASSIUM - SERUM 4.6 mmol/L (3.5-5.1); SODIUM 138 mmol/L (136-145); UREA NITROGEN 16 mg/dL (7-18); eGFR NON AFRICAN AMERICAN 79 mL/min (90-120)
== END 2017-11-18 15:00 | disposition home or self-care (01) ==
LOC: D.CATH 07:40
PROVIDERS: Internal Medicine Interventional Cardiology
DX: I25.119 Atherosclerotic heart disease of native coronary artery with unspecified angina pectoris (principal); I10 Essential (primary) hypertension; E78.5 Hyperlipidemia, unspecified; Z01.812 Encounter for preprocedural laboratory examination; Z95.5 Presence of coronary angioplasty implant and graft
CPT/HCPCS: 92978; C9600

== ENCOUNTER 2018-11-30 10:05 | Inpatient (IN) | payer MEDICARE ==
[~2018-11-30] VITALS: Ht 182.9 cm; Wt 84.8 kg
--- NOTE | ~2018-11-30 | EC ---
PATIENT:LEROY FLOREZ DATE OF SERVICE: 11/30/18 SEX: M MEDICAL RECORD: [id number] DATE OF : 46 LOCATION:D.M2 D.212 AGE OF PATIENT: 68 ADMISSION DATE: 11/30/18 REFERRING PHYSICIAN: INTERPRETING PHYSICIAN: JACINTO HUERTA MD ECHOCARDIOGRAM REPORT ECHO CHARGES 4 ECHO COMPLETE Date: 11/30/18 CLINICAL DIAGNOSIS: SOB ECHOCARDIOGRAPHIC MEASUREMENTS (adult normal given) AC root (d.<3.7cm) 3.2 cm LV Septum d (<1.2 cm> 0.7 cm Valve Excursion 1.7 cm LV Septum (systole) 1.1 cm Left Atria (s.<4.0cm> 3.7 cm LVPW d(<1.2cm) 1.0 cm RV (d.<2.3cm) 3.0 cm LVPW (sytole) 1.8 cm LV diastole(<5.6CM) 5.0 cm MV E-F(>70mm/sec) cm LV systole 3.7 cm LVOT Diameter 1.8 cm MV exc.(>10mm) cm Est.ejection fraction (50-75%) % DOPPLER: LVIT cm/sec A 32 cm/sec E 95 cm/sec LA cm/sec RVSP 31.2 mmHg LVOT 41 cm/sec AOP1/2T m/s Asc. Ao 77 cm/sec RVOT 48 cm/sec RA cm/sec PA 53 cm/sec AV Gradient Peak 2.4 mmHg AV Mean 1.3 mmHg AV Area 1.3 cm MV Gradient Peak 3.4 mmHg MV Mean 1.5 mmHg MV Area cm COMMENTS: Chief Dispatcher Service: Adriel CRANDALLSENTHIL SALONI Emulsion Operator: 1 Dr. Huerta TAPE# PACS Pericardial Effusion N DATE OF SERVICE: 11/30/2018 PROCEDURE: Echocardiogram. FINDINGS: 1. Left ventricular chamber size is dilated. Left ventricular systolic function is markedly reduced, overall ejection fraction 10% to 15%. 2. Left atrium, right atrium, and right ventricle chamber sizes are upper limits of normal. 3. Valvular structures have normal structure and motion. ECHOCARDIOGRAM REPORT [id number] LEROY FLOREZ 4. Doppler interrogation reveals severe mitral regurgitation, moderate tricuspid regurgitation, no other valvular insufficiency or stenosis. Pulmonary systolic pressure is estimated at 31 mmHg. 5. No evidence of pericardial effusion or left ventricular thrombus. TRANSINT:[id number] Voice Confirmation ID: [id number] DOCUMENT ID: [id number] JACINTO HUERTA MD CC: [id number] DICTATION DATE: 12/01/18 1139 NANOTECHNOLOGY TECHNICIAN: 12/01/18 1226 ADM [address] [place] [address] [place] [address]
--- NOTE | ~2018-11-30 | HEMODYNAMI ---
PATIENT:LEROY FLOREZ MEDICAL RECORD: [id number] : 46 [address] [id number] ADMISSION DATE: 11/30/18 Generatedon:12/01/201815:40 Patient name: LEROY FLOREZ Patient #: [id number] SSN: : 1950 Date of study: 12/01/2018 Page: Of Hemodynamic Procedure Report Patient Data Patient Demographics Procedure consent was obtained First Name: LEROY Gender: Male Last Name: GAUTAM : 1950 [facility] Initial: L Age: 68 year(s) Patient #: [id number] Race: Unknown Additional ID: [id number] Contact details Address: [address] [place] [address] State: [place] City: [place] Zip code: [address] Past Medical History Allergies: No known allergies Admission Admission Data Admission Date: 11/30/2018 Admission Time: 11:15 Room #: [facility] Procedure Procedure Types Cath Procedure Diagnostic Procedure LHC LHC w/Coronaries FFR/IVUS Intra-Coronary IVUS Initial Sedation Charges Moderate Sedation up to 15 minutes PCI Procedure Coronary Stent Coronary Stent Initial PTCA PTCA Initial Procedure Description Procedure Date Procedure Date: 12/01/2018 Procedure Start Time: 15:21 Procedure End Time: 15:40 Procedure Staff Name Function Damian Huerta MD Performing Physician Zaira Krishna RT Monitor Miri Castillo RN Nurse Keith Aguiar RT Scrub Procedure Data Cath Procedure Fluoroscopy Diagnostic fluoroscopy Total fluoroscopy Time: 5.4 time: 5.4 min min Diagnostic fluoroscopy Total fluoroscopy dose: 895 dose: 895 mGy mGy Contrast Material Contrast Material Type Amount (ml) Isovue 300 113 Entry Location Entry Primary Successful Side Size Upsize Upsize Entry Closure Thomson ccessful Closure Location (Fr) 1 (Fr) 2 (Fr) Remarks Device Remarks Radial Right 6 Fr Mechanical artery Short Compression Estimated blood loss: 10 ml Diagnostic catheters Device Type Used For End Catheter Placement DIAGNOSTIC [place] 110cm 5 LV Angiography Fr catheter ([id number]) DIAGNOSTIC [place] 110cm 5 Right Coronary Fr catheter ([id number]) Angiography Procedure Complications No complications Procedure Medications Medication Administration Route Dosage Oxygen etCO2 Nasal cannula 2 l/min Lidocaine 2% added to field 20 Heparin Flush Bag added to field 2 bags (1000units/500ml NS) 0.9% NaCl I.V. 100 ml/hr Radial Cocktail I.A. 1 syringe (Verapomil 2mg/Nitro 400mcg/Heparin 1500units) Versed I.V. 1 mg Fentanyl I.V. 25 mcg Heparin Bolus I.V. 4000 units Integrilin (Bolus I.V. 7.9 ml 2mg/ml) Plavix P.O. 600 mg Hemodynamics Rest Heart Rate: 65 (bpm) Snapshots Pre Cath Intra NCS Post Cath Vital Signs Time Heart Resp SPO2 etCO2 NIBP (mmHg) Rhythm Pain Sedation Rate (ipm) (%) (mmHg) Status Level (bpm) 15:18:12 64 23 97 0 124/76(101) NSR 0 (11) 10(A) , No pain 15:22:30 64 19 94 0 120/66(92) NSR 0 (11) 10(A) , No pain 15:26:44 59 17 93 15.8 109/57(80) NSR 0 (11) 9(A) , No pain 15:30:56 60 18 95 9 113/61(86) NSR 0 (11) 9(A) , No pain 15:35:10 58 17 94 24.9 111/66(89) NSR 0 (11) 9(A) , No pain 15:39:24 58 18 95 0 117/61(88) NSR 0 (11) 10(A) , No pain Medications Time Medication Route Dose Verified Delivered Reason Not es Effectiveness by by 15:18:06 Oxygen etCO2 2 l/min Damian Chery used for Nasal Deanna Castillo RN procedure cannula 15:18:12 Lidocaine 2% added 20ml Damian Salgado for local to vial Deanna Huerta MD anesthetic field 15:18:18 Heparin Flush added 2 bags Damian Salgado used for Bag to Deanna Huerta MD procedure (1000units/500ml field NS) 15:18:27 0.9% NaCl I.V. 100 Damian Magoie Per physician ml/hr Deanna Castillo RN 15:20:15 Versed I.V. 1 mg Damian Chery for sedation Deanna Castillo RN 15:20:22 Fentanyl I.V. 25 mcg Damian Chery for sedation Deanna Castillo RN 15:22:38 Radial Cocktail I.A. 1 Damian christianson (Verapomil syringe Deanna Huerta MD vasodilation 2mg/Nitro 400mcg/Heparin 1500units) 15:27:55 Heparin Bolus I.V. 4000 Damian christianson shawn ified units Deanna Castillo RN anticoagulation with dr huerta 15:29:39 Integrilin I.V. 7.9 ml Damian christianson Was leanna (Bolus 2mg/ml) Deanna Castillo RN antiplatelet 2.1 ml therapy of vial 15:37:58 Plavix P.O. 600 mg Damian Castillo RN antiplatelet therapy Procedure Log Time Note 15:02:48 Miri Castillo RN sent for patient. Start room use. 15:02:49 Time tracking: Regular hours (M-F 7:00 - 5:00) 15:02:53 Plan of Care:Hemodynamics will remain stable., Cardiac rhythm will remain stable., Comfort level will be maintained., Respiratory function will remain adequate., Patient/ family verbilizes understanding of procedure., Procedure tolerated without complication., Recovers from procedure without complications.. 15:08:20 Patient received from Med II to CCL 1 Alert and oriented. Tansferred to table in Supine position. 15:08:21 Warm blankets applied, and yaquelin hugger turned on for patient comfort. 15:08:22 Correct patient and procedure confirmed by team. 15:08:23 Signed procedure consent form obtained from patient. 15:08:24 ECG and BP/O2 sat monitors applied to patient. 15:17:10 Vital chart was started 15:17:13 Rhythm: sinus rhythm 15:17:14 Full Disclosure recording started 15:17:20 H&P Date Dictated: 12/01/2018 Within 30 days and on chart.. 15:17:22 Pre-procedure instructions explained to patient. 15:17:22 Pre-op teaching completed and patient verbalized understanding. 15:17:24 Family in patients room. 15:17:25 Patient NPO since Midnight. 15:17:29 Patient allergic to No known allergies 15:17:31 Is the patient allergic to Iodine/contrast media? No. 15:17:32 Is patient on blood thinner?No 15:17:34 Patient diabetic? No. 15:17:43 Previous problem with sedation/anesthesia? No ? 15:17:44 Snore? Yes 15:17:45 Sleep apnea? No 15:17:46 Deviated septum? No 15:17:46 Opens mouth fully? Yes 15:17:47 Sticks out tongue? Yes 15:17:50 Airway obstruction? No ? 15:17:53 Dentures? Yes in 15:17:56 Pre procedure: right dorsailis pedis pulse 2+ Normal; easily identifiable; not easily obliterated 15:18:00 Modified Sarabjit's test Ulnar < 7 seconds 15:18:01 Patient pain scale 0/10 ?. 15:18:06 Oxygen 2 l/min etCO2 Nasal cannula was administered by Miri Castillo RN; used for procedure; 15:18:08 IV patent on arrival in right forearm with 0.9% NaCl at [facility]. 15:18:10 Lab results completed and on chart. 15:18:12 Lidocaine 2% 20ml vial added to field was administered by Damian Huerta MD; for local anesthetic; 15:18:18 Heparin Flush Bag (1000units/500ml NS) 2 bags added to field was administered by Damian Huerta MD; used for procedure; 15:18:18 Right Radial & Right Groin area was prepped with chlora-prep and draped in sterile fashion 15:18:24 Alarms reviewed by R. N. 15:18:24 Sharps counted by scrub and verified by R.N. 15:18:26 Final Timeout: patient, procedure, and site verified with staff and physician. All members of the team are in agreement. 15:18:27 0.9% NaCl 100 ml/hr I.V. was administered by Miri Castillo RN; Per physician; 15:18:28 Right Radial site verified by team. 15:18:31 Maximum allowable Isovue 300 dose 300ml. Physician notified. (300ml for normal creatinines. For patients with creatinine of 1.7 or higher multiply weight(kg) x 5 divided by creatinine.) 15:18:34 Fire Safety Assessment: A--An alcohol-based skin anteseptic being used preoperatively., C--Open oxygen or nitrous oxide is being used., D--An ESU, laser, or fiber-optic light is being used. 15:18:37 Physical assessment completed. ASA score P 2 - A patient with mild systemic disease as per Damian Huerta MD. 15:18:39 Sedation plan: IV Moderate Sedation Medication:Versed, Fentanyl 15:20:15 Versed 1 mg I.V. was administered by Miri Castillo RN; for sedation; 15:20:22 Fentanyl 25 mcg I.V. was administered by Miri Castillo RN; for sedation; 15:21:02 Use device set Radial Dx or PCI 15:21:07 Zero performed for pressure channel P1 15:21:12 Procedure started. 15:21:16 Local anesthetic to right radial artery with Lidocaine 2% by Damian Huerta MD.INITIAL ACCESS ONLY 15:21:33 A 6 Fr Short sheath was inserted into the Right Radial artery 15:21:36 Baseline sample Acquired. 15:21:53 ACIST Syringe (82512) opened to sterile field. 15:21:53 Medline Cath Pack ([id number]) opened to sterile field. 15:21:54 Bag Decanter (2002) opened to sterile field. 15:21:54 DIAGNOSTIC WIRE .035 260cm J wire (219327) opened to sterile field. 15:21:55 ACIST Hand Control (56616) opened to sterile field. 15:21:55 ACIST Manifold (90617) opened to sterile field. 15:21:56 Tegaderm 4 x 4 (1626W) opened to sterile field. 15:21:56 MBrace Wrist Support ([id number]) opened to sterile field. 15:21:58 SHEATH 6FR Slender (48-1060) opened to sterile field. 15:22:38 Radial Cocktail (Verapomil 2mg/Nitro 400mcg/Heparin 1500units) 1 syringe I.A. was administered by Damian Huerta MD; for vasodilation; 15:23:48 A DIAGNOSTIC [place] 110cm 5 Fr catheter (579279) was advanced over the wire and used for LV Angiography. 15:23:51 LV gram done using KHAN 15:23:55 Injector settings: Ml/sec: 5, Volume: 15, 15:24:01 EF : 20 % 15:24:12 A DIAGNOSTIC [place] 110cm 5 Fr catheter (827799) was advanced over the wire and used for Right Coronary Angiography. 15:24:34 Catheter removed. 15::58 Use device set DEANNA PCI 15:25:02 CHOICE PT Extra Support 182cm wire ([id number]) opened to sterile field. 15:25:04 GUIDE 6FR XBLAD 3.5 catheter (12756714) opened to sterile field. 15:25:07 INFLATOR Merit BasixCompak (RO0215) opened to sterile field. 15:25:31 6 Fr XBLAD 3.5 guide catheter was inserted over the wire 15:26:43 LCA angiography performed. 15:27:47 Minoa Clifton Eagleye IVUS Catheter (36477G) opened to sterile field. 15:27:55 Heparin Bolus 4000 units I.V. was administered by Miri Castillo RN; for anticoagulation; verified with dr huerta 15:28:07 CHOICE PT ES wire advanced. 15:28:10 IVUS catheter advanced over wire. 15:28:28 IVUS pass to LAD lesion performed. 15:29:39 Integrilin (Bolus 2mg/ml) 7.9 ml I.V. was administered by Miri Castillo RN; for antiplatelet therapy; Wasted 2.1 ml of vial 15:30:09 IVUS catheter removed over wire. 15::58 Procedure type changed to Cath procedure, Diagnostic procedure, LHC, LHC w/Coronaries, FFR/IVUS, Intra-Coronary IVUS Initial, Sedation Charges, Moderate Sedation up to 15 minutes, PCI procedure, Coronary Stent, Coronary Stent Initial, PTCA, PTCA Initial 15:32:05 Place stent Inflation Number: 1 A INTEGRITY RX 2.5 x 26 stent ([id number]) was prepped and advanced across the Dist LAD. The stent was deployed at 17 CANDICE for 0:12 (min:sec). 15:32:28 Stent catheter was removed intact over wire. 15:32:29 Wire removed. 15:32:29 Guide catheter removed. 15:33:24 6 Fr AR 1 guide catheter was inserted over the wire 15:33:56 GUIDE 6FR AR 1.0 catheter ([id number]) opened to sterile field. 15:34:09 CHOICE PT ES wire advanced. 15:35:09 Inflate balloon Inflation number: 1 A EUPHORA 3.5 x 20 Balloon ([id number]) was prepped and advanced across the Mid RCA, then inflated to 21 CANDICE for 0:17 (min:sec). 15:35:37 Inflation number: 2 The EUPHORA 3.5 x 20 Balloon ([id number]) was reinflated across the Mid RCA, to 21 CANDICE for 0:05 (min:sec). 15:35:55 Balloon removed over the wire. 15:35:55 Wire removed. 15:35:56 Guide catheter removed. 15:36:10 Sheath removed intact; hemostasis achieved with Mechanical Compression to the Right Radial artery. 15:36:12 Procedure ended.(Physican Out) 15:36:59 Fluoroscopy time 05.40 minutes. 15:37:04 Fluoroscopy dose: 895 mGy 15:37:04 Flurop Dose total: 895 15:37:07 Contrast amount:Isovue 300 113ml. 15:37:08 Sharps counted by scrub and verified by R.N. 15:37:09 Insertion/operative site no bleeding no hematoma. 15:37:25 Post left brachial artery:stable, clean and dry 15:37:26 Post Procedure Pulses reassessed and unchanged 15:37:28 Post-procedure physical assessment completed. ASA score P 2 - A patient with mild systemic disease as per Damian Huerta MD. 15:37:30 Post procedure rhythm: unchanged. 15:37:33 Estimated blood loss: 10 ml 15:37:34 Post procedure instruction explained to patient.Patient verbalizes understanding. 15:37:35 Patient needs reinforcement of post procedure teaching. 15:37:39 Procedure Complication : No complications 15:37:41 See physician's report for complete and final results. 15:37:58 Plavix 600 mg P.O. was administered by Miri Castillo RN; for antiplatelet therapy; 15:38:23 TR band inflated with 11cc of air. 15:38:29 TR BAND Standard ([id number]) opened to sterile field. 15:40:05 Procedure and supply charges have been captured, reviewed, submitted and are correct. 15:40:09 Vital chart was stopped 15:40:11 Report given to PCU. 15:40:14 Patient transfered to PCU with Bed. 15:40:22 Procedure ended. 15:40:22 Full Disclosure recording stopped 15:40:25 End room use (Document Last) Intervention Summary Intervention Notes Time ActionType Lesion and Equipment Action# Pressure Duration Attributes Used 15:32:05 Place stent Dist LAD INTEGRITY RX 1 17 00:13 2.5 x 26 stent ([id number]) 15:35:09 Inflate Mid RCA EUPHORA 3.5 1 21 00:17 balloon x 20 Balloon ([id number]) 15:35:37 Reinflate Mid RCA EUPHORA 3.5 2 21 00:05 balloon x 20 Balloon ([id number]) Device Usage Item Name Manufacture Quantity Catalog Number Hospital Part Current Mini mal Lot# / Charge Number Stock Stock Serial# Code ACIST Acist 1 64068 633075 316213 327280 20 Syringe Medical (59826) Systems Inc Medline Cath Medline 1 [id number] 145988 62559 676178 5 Pack ([id number]) Bag Decanter Microtek 1 2001S 701424 78462 235926 5 (2001S) Medical Inc. DIAGNOSTIC [place] 1 057176 385117 753764 824801 30 WIRE .035 260cm J wire (052927) ACIST Hand Acist 1 31024 807379 144578 867988 5 Control Medical (11870) Systems Inc ACIST Acist 1 97517 836829 279786 673396 5 Manifold Medical (69407) Systems Inc Tegaderm 4 x 3M 1 1626W 845769 152319 676479 5 4 (1626W) MBrace Wrist Advanced 1 140-0250-00 500678 60066 838435 5 Support Vascular (080991806) Dynamics SHEATH 6FR Terumo 1 [id number] 569583 723507 233146 5 Slender (80-1060) DIAGNOSTIC Terumo 1 40-1923 657265 781023 434085 5 [place] 110cm 5 Fr catheter (029010) CHOICE PT [place] 1 [id number] 656112 545921 934586 5 Extra Scientific Support 182cm wire (1697559X6) GUIDE 6FR Cardinal 1 [id number] 269646 737506 134790 10 XBLAD 3.5 Health catheter (21124966) INFLATOR Merit 1 FV4193 714486 610760 462573 15 [facility] Medical BasixCompak (YE9852) Minoa Minoa 1 97228Y 955473 777868 387188 8 Clifton Eagleye IVUS Catheter (82048G) INTEGRITY RX Medtronic 1 [id number] 105660 346442 298088 5 [id number] 2.5 x 26 stent ([id number]) GUIDE 6FR AR Medtronic 1 [id number] 489205 56931 266061 1 1.0 catheter (XC6QY38) EUPHORA 3.5 Medtronic 1 [id number] 838996 823558 600933 5 [id number] x 20 Balloon ([id number]) TR BAND Terumo 1 [id number] 445213 560680 271306 40 Standard ([id number]) Signature Audit Lolita Stage Time Signature Unsigned Intra-Procedure 12/01/2018 Zaira 3:40:38 PM Counts RT(R) Signatures Monitor : Zaira Signature : Counts RT Date : Time : [place] [id number] [facility] [place] [address]
--- NOTE | ~2018-11-30 | OP ---
PATIENT NAME: LEROY FLOREZ MEDICAL RECORD: [id number] :46 LOCATION:[address] ADMISSION DATE:11/30/18 SURGEON: JACINTO PIERRE MD DATE OF OPERATION: 12/01/2018 PROCEDURES: 1. PTCA and stent, LAD. 2. PTCA, RCA. 3. Intravascular ultrasound. 4. Left heart catheterization. 5. Selective coronary angiography. 6. Left ventriculogram. INDICATION: Angina and coronary artery disease. PROCEDURE IN DETAIL: After informed consent was obtained with detailed description of risks and benefits as well as alternative therapies, the patient elected to proceed with angiogram and angioplasty. The right radial area was prepped and draped in normal sterile fashion. The right radial artery was cannulated via modified Seldinger technique with placement of 6-Chadian sheath. All catheters were exchanged through this sheath. FINDINGS: Left ventriculogram performed in standard 30-degree KHAN view reveals good cardiac wall motion throughout all segments. Left ventricular chamber size is dilated. Left ventricular systolic function is markedly reduced. Overall ejection fraction in the 25% range. SELECTIVE CORONARY ANGIOGRAPHY: 1. Left main is with no significant angiographic disease. 2. Left anterior descending has previously placed stents. These are widely patent with no significant restenosis; however, there is greater than 70% stenosis in the mid vessel, confirmed by intravascular ultrasound. 3. Left circumflex has mild irregularities, but no flow-limiting stenosis. 4. Right coronary has previously placed stents with 70% in-stent restenosis in the mid vessel. PTCA AND STENT OF THE LAD: The stent used was a 2.5 x 26 mm Integrity. Result was 0% residual stenosis. PTCA OF THE RCA: The in-stent restenosis of the RCA was addressed with a 3.5 balloon, taken to 21 atmospheres. Result was 0% residual stenosis. OVERALL IMPRESSION: Successful PTCA and stent of the LAD, going from 70% initial stenosis to 0% residual. Successful PTCA for in-stent restenosis of the RCA, going from 70% initial stenosis to 0% residual. TRANSINT:[id number] Voice Confirmation ID: [id number] DOCUMENT ID: [id number] OPERATIVE REPORT [id number] LEROY FLOREZ JEFFREY MD CC: [id number] DICTATION DATE: 12/01/18 1543 DEVULCANIZER TENDER: 12/01/18 1844 ADM IN [place] [id number] [place] [address]
[2018-11-30] MEDS ORDERED: LOPRESSOR25 MG PO (10:10)
[2018-11-30] MEDS ORDERED: VOLTAREN75 MG PO (10:10)
[2018-11-30] MEDS ORDERED: COMBIVENT RESPIM4 GM INH (10:10)
[2018-11-30 10:34] LABS: BASOPHILS 0.6 % (0-2); EOSINOPHILS 2.1 % (0-7); HEMATOCRIT 45.2 % (42.0-54.0); HEMOGLOBIN 15.3 g/dL (13.5-17.5); IMMATURE GRANULOCYTES 0.4 % (0-5); LYMPHOCYTES 22.1 % (15-50); MCH 31.4 pg (26.0-34.0); MCHC 33.8 g/dL (31.0-37.0); MCV 92.6 fL (80.0-100.0); MEAN PLATELET VOLUME 10.1 fL (7.4-10.4); MONOCYTES 8.7 % (2-11); NEUTROPHILS 66.1 % (40-80); PLATELET COUNT 231 10x3/uL (130-400); RBC 4.88 10x6/uL (4.20-6.10); RDW 13.9 % (11.5-14.5); WBC 8.5 10x3/uL (4.8-10.8)
[2018-11-30 10:42] LABS: APTT 31.7 SECONDS (22.8-39.4); INR 1.15 (0.85-1.17); PROTIME 14.2 SECONDS (11.6-15.0)
[2018-11-30 10:48] LABS: ALBUMIN 3.8 g/dL (3.4-5.0); ALKALINE PHOSPHATASE 89 U/L (46-116); ALT (SGPT) 198 U/L (10-68); BILIRUBIN - TOTAL 0.81 mg/dL (0.2-1.3); CALC OSMOLALITY 292 mosm/kg (275-300); CALCIUM 8.9 mg/dL (8.5-10.1); CARBON DIOXIDE 23.6 mmol/L (21.0-32.0); CHLORIDE - SERUM 107 mmol/L (98-107); CREATININE - SERUM 1.5 mg/dL (0.6-1.3); GLUCOSE 145 mg/dL (74-106); POTASSIUM - SERUM 5.2 mmol/L (3.5-5.1); PROTEIN - SERUM 8.3 g/dL (6.4-8.2); SODIUM 143 mmol/L (136-145); UREA NITROGEN 27 mg/dL (7-18); eGFR NON AFRICAN AMERICAN 49 mL/min (90-120)
[2018-11-30 10:59] LABS: CKMB 1.8 U/L (0.0-3.6); CREATINE KINASE 83 UL (21-232); PRO BNP 2747 pg/mL (0-125); TROPONIN-I 0.028 ng/mL (0.000-0.060)
[2018-11-30 12:46] VITALS: BP 119/81
[2018-11-30 13:35] VITALS: BP 128/74
[2018-11-30 16:13] VITALS: BP 119/58
--- NOTE | 2018-11-30 16:55 | NUR ---
PT PROVIDED WITH DINNER TRAY. VOICED NO OTHER NEEDS AT THIS TIME.
--- NOTE | 2018-11-30 17:44 | NUR ---
PT VOIDED 600ML CLEAR YELLOW URINE
--- NOTE | 2018-11-30 18:32 | NUR ---
RECIEVED FROM ER. ALERT AND ORIENTED. TELEMERTY SHOWS SR 77 WITH BBB. RIGHT WRIST SL 20 BRIE. DENIES ANY NEEDS. WILL MONITOR
[2018-11-30 18:34] VITALS: BP 119/78; BMI 26.9
--- NOTE | 2018-11-30 18:39 | NUR ---
ASSESSMENT COMPLETE AAOX4 RESP UNLABORED ON ROOM AIR TELEMETRY SR 1ST DEGREE BLOCK W/BBB RATE 77 PT DENIES ANY PAIN OR DISCOMFORT NAD NOTED
[2018-11-30 19:55] VITALS: BP 107/60
--- NOTE | 2018-11-30 22:00 | NUR ---
INITIAL ROUNDS COMPLETED AT 1914 HRS. PT DENIED ANY DISCOMFORT. ASSESSMENT COMPLETED AT 2039 HRS. VSS. SR WITH BBB PER CM HR 69. IV TO RFA SL. LUNGS CTA. SARAH. PALPABLE PERIPHERAL PULSES. PM MEDS GIVEN. PT CURRENTLY READING A BOOK. SR UP X2, CALL LIGHT WITHIN REACH.
--- NOTE | 2018-12-01 00:26 | NUR ---
PT RESTING WITH EYES CLOSED. RESP EVEN AND REGULAR. SR UP X2, CALL LIGHT WITHIN REACH.
--- NOTE | 2018-12-01 02:22 | NUR ---
PT RESTING WITH EYES CLOSED. RESP EVEN AND REGULAR. SR UP X2, CALL LIGHT WITHIN REACH.
[2018-12-01 03:50] VITALS: BP 100/57
--- NOTE | 2018-12-01 04:26 | NUR ---
PT RESTING WITH EYES EYES CLOSED. RESP EVEN AND REGULAR. SR UP X2, CALL LIGHT WITHIN REACH.
--- NOTE | 2018-12-01 06:41 | NUR ---
VSS THORUGHOUT NIGHT. SR WITH BBB PER CM. NPO FOR [facility] TODAY. NEEDS MET; WILL CONTINUE TO MONITOR.
--- NOTE | 2018-12-01 07:15 | NUR ---
ROUNDING DONE WITH PATIENT RESTING ON SIDE, EYES CLOSED. RESP ARE EVEN. ON ROOM AIR. ON HEART MONITOR SHOWING SR W BBB, HR 62. RIGHT WIRST PIV SEEN WITH SALINE LOCK. NPO STATUS.
[2018-12-01 07:58] LABS: BASOPHILS 0.4 % (0-2); EOSINOPHILS 3.5 % (0-7); HEMATOCRIT 38.4 % (42.0-54.0); HEMOGLOBIN 13.3 g/dL (13.5-17.5); IMMATURE GRANULOCYTES 0.2 % (0-5); LYMPHOCYTES 16.8 % (15-50); MCH 31.5 pg (26.0-34.0); MCHC 34.6 g/dL (31.0-37.0); MEAN PLATELET VOLUME 9.9 fL (7.4-10.4); MONOCYTES 7.4 % (2-11); NEUTROPHILS 71.7 % (40-80); PLATELET COUNT 199 10x3/uL (130-400); RBC 4.22 10x6/uL (4.20-6.10); WBC 8.3 10x3/uL (4.8-10.8)
[2018-12-01 08:07] LABS: ANION GAP 12.6 mmol/L (8-16); CALCIUM 8.9 mg/dL (8.5-10.1); CARBON DIOXIDE 27.5 mmol/L (21.0-32.0); CREATININE - SERUM 1.2 mg/dL (0.6-1.3); MAGNESIUM - SERUM 1.9 mg/dL (1.8-2.4)
[2018-12-01 08:08] LABS: POTASSIUM - SERUM 4.1 mmol/L (3.5-5.1)
[2018-12-01 08:28] VITALS: BP 115/70
--- NOTE | 2018-12-01 10:38 | NUR ---
DENIES NEEDS AT THIS TIME. STILL NPO FOR HEART CATH.
--- NOTE | 2018-12-01 10:54 | HP ---
PATIENT: LEROY CRUZ MEDICAL RECORD: [id number] ACCOUNT: [id number] LOCATION:[address] : [birth year] ADMISSION DATE: 11/30/18 PCP: KEELY FLETCHER DO HISTORY AND PHYSICAL EXAMINATION DIAGNOSES: 1. Unstable angina. 2. Coronary artery disease. 3. Previous PTCA and stents, 3 vessels, October of 2017. 4. Shortness of breath and dyspnea on exertion. 5. COPD. 6. Smoking history. 7. Hypertension. HISTORY: Mr. Cruz presents with shortness of breath and chest pain for the past 3 days. Chest x-ray is compatible with mild pulmonary edema and congestive heart failure. He does have history of coronary artery disease. Last cardiac intervention was in October of 2017, 3-vessel PTCA and stents. His EKG is with no acute ST-T abnormalities. PHYSICAL EXAMINATION: GENERAL APPEARANCE: Well-nourished, well-developed, appears stated age. Level of distress, comfortable. PSYCHIATRIC: Mental status, alert, normal affect. Orientation, oriented to time, place and person. EYES: Lids and conjunctiva, noninjected. No discharge, no pallor. ENT: Lips, teeth, gums, normal dentition. Oropharynx, no cyanosis, no pallor. NECK: Carotid arteries, bilateral normal upstroke, no bruits, no thrills. JUGULAR VEINS: No jugular venous pressure or distention. CERVICAL LYMPH NODES: Nontender, nonenlarged. THYROID: Not enlarged. Nontender. No nodules. LUNGS: Respiratory effort, unlabored. CHEST: Normal curvature. No thoracic deformity. No chest wall tenderness. Percussion, resonant. Auscultation, clear. No wheezes, no rales, no rhonchi. CARDIOVASCULAR: Precordial exam, nondisplaced. No heaves or pericardial thrills. Rate and rhythm, regular. Heart sounds, normal S1, normal S2. No S3, no gallop, no rub. Systolic murmur, not heard. Diastolic murmur, not heard. EXTREMITIES: No cyanosis, no edema. Peripheral pulses, full and equal in all extremities, except as noted. No bruits appreciated. ABDOMEN: Soft, nondistended. Normal aorta. No bruit. Nontender. No masses. Liver, nontender, no hepatomegaly. Spleen, nontender, no splenomegaly. MUSCULOSKELETAL: No joint tenderness. No joint swelling. No erythema. NEUROLOGICAL: Normal gait, normal strength, normal tone. SKIN: Warm and dry. OVERALL IMPRESSION: Anginal symptomatology with shortness of breath and pulmonary edema. Most likely, he has recurrent hemodynamically significant coronary artery disease. We will proceed with coronary angiography in the a.m. Lasix today for diuresis. Further care depends upon findings of the angiography. TRANSINT:[id number] Voice Confirmation ID: [id number] DOCUMENT ID: [id number] HISTORY AND PHYSICAL [id number] LEROY CRUZ JEFFREY MD at 1054 CC: [id number] DICTATION DATE: 11/30/18 1141 DIESEL ENGINEER: 11/30/18 1152 ADM IN [place] [id number] [place] [id number]
[2018-12-01 11:40] VITALS: BP 113/66
--- NOTE | 2018-12-01 12:05 | NUR ---
STILL AWAITING HEART CATH, NPO.
[2018-12-01 13:05] VITALS: Ht 182.9 cm; Wt 84.8 kg
--- NOTE | 2018-12-01 13:42 | NUR ---
PATIENT IS PRE-OP FOR HEART CATH.
[2018-12-01 14:55] VITALS: BP 115/68
--- NOTE | 2018-12-01 15:05 | NUR ---
TO BONBON CREAM WARMER
--- NOTE | 2018-12-01 15:58 | NUR ---
RETURNS FROM VACUUM EVAPORATION OPERATOR RECOVERY WITH TR BAND SEEN TO RIGHT WRIST, NO BLEEDING SEEN. IN REPORT, 12 CC AIR. AT [facility]. WILL MONITOR.
--- NOTE | 2018-12-01 19:29 | NUR ---
RESUMED CARE OF PT, LYING IN BED RESPIRATIONS EVEN AND UNLABORED ON 2LPM VIA NC. 68 SR WITH BBB ON TELEMETRY. RIGHT WRIST TR BAND INFLATED, C/D/I. AT BEDSIDE, PLAN OF CARE DISCUSSED. NO NEEDS VOICED AT THIS TIME. SEE NURSE ASSESSMENT. CALL LIGHT IN REACH.
[2018-12-01 20:05] VITALS: BP 121/71
--- NOTE | 2018-12-01 20:21 | NUR ---
ATTEMPTED TO REMOVE 4CC OF AIR FROM TR BAND, BLEEDING PRESENT. 4 CC OF AIR REFILLED.
--- NOTE | 2018-12-01 21:27 | NUR ---
UNSUCCESSFUL AT REMOVING AIR FROM TR BAND AGAIN. AIR REINSTILLED AND NIGHT MEDS GIVEN. CALL LIGHT IN REACH.
[2018-12-02 03:47] VITALS: BP 108/63
--- NOTE | 2018-12-02 07:23 | NUR ---
ROUNDING DONE WITH PATIENT AMBULATING IN ROOM. ON HEART MONITOR SHOWING SR W BBB, HR 71.ON ROOM AIR. RIGHT WRIST SEEN WITH TEGADERM DRESSING FROM HEART CATH YESTERDAY, NO BLEEDING SEEN. RIGHT FA PIV SEEN WITH SALINE LOCK, ORANGE SWAB CAP IN USE. DENIES ANY NEEDS AT THIS TIME. WILL MONITOR.
[2018-12-02 07:27] LABS: ANION GAP 14.5 mmol/L (8-16); CALCIUM 8.7 mg/dL (8.5-10.1); CARBON DIOXIDE 25.3 mmol/L (21.0-32.0); CREATININE - SERUM 1.1 mg/dL (0.6-1.3); MAGNESIUM - SERUM 1.9 mg/dL (1.8-2.4); POTASSIUM - SERUM 3.8 mmol/L (3.5-5.1)
[2018-12-02 07:30] LABS: BASOPHILS 0.4 % (0-2); EOSINOPHILS 3.4 % (0-7); HEMATOCRIT 41.2 % (42.0-54.0); HEMOGLOBIN 14.1 g/dL (13.5-17.5); IMMATURE GRANULOCYTES 0.3 % (0-5); LYMPHOCYTES 20.7 % (15-50); MCH 31.2 pg (26.0-34.0); MCHC 34.2 g/dL (31.0-37.0); MCV 91.2 fL (80.0-100.0); MONOCYTES 8.2 % (2-11); PLATELET COUNT 213 10x3/uL (130-400); RBC 4.52 10x6/uL (4.20-6.10); RDW 13.9 % (11.5-14.5); WBC 7.6 10x3/uL (4.8-10.8)
[2018-12-02 08:26] VITALS: BP 130/67
[2018-12-02] MEDS ORDERED: LASIX40 MG PO (10:51)
[2018-12-02] MEDS ORDERED: PLAVIX75 MG PO (11:26)
[2018-12-02 11:44] VITALS: BP 139/74
--- NOTE | 2018-12-02 11:53 | MORECARE ---
CASE MANAGEMENT DISCHARGE SUMMARY PATIENT: LEROY FLOREZ UNIT: [id number] ADM DATE: 11/30/18 AGE: 68 : 46 SEX: M ROOM/BED: D.2122 AUTHOR: HARMONY CRUZ PHYSICIAN: REFERRING PHYSICIAN: KYMBERLY LYNNE MD DATE OF SERVICE: 12/02/18 Discharge Plan Patient Name: LEROY FLOREZ Facility: [facility]:[place] : 1950 Planned Disposition: Anticipated Discharge Date: 12/02/18 Discharge Date: Expected LOS: 2 Initial Reviewer: [email or web address] Initial Review Date: 12/02/2018 Generated: 12/02/18 12:53 pm Comments DCP- Discharge Planning Updated by [email or web address]: Tika Khan on 12/02/18 10:[address] Patient Name: LEROY FLOREZ Admission Status: ER Accout number: [id number] Admission Date: 11-30-2018 : 1950 Admission Diagnosis: Attending: KYMBERLY LYNNE Current LOS: 2 Anticipated DC Date: 12-02-2018 Planned Disposition: Primary Insurance: [facility] MEDIC[employer]UT[employer] Discharge Planning Comments: CM MET WITH PATIENT AND ABOUT DC PLANNING/NEEDS. STATES NO NEEDS AND WILL TAKE HOME WHEN DC'D. SHE IS AT BEDSIDE NOW. CM WILL FOLLOW AND ASSIST NEEDED WITH DC PLANNING/NEEDS. Stripper Black And White: Tika Khan DCPIA - Discharge Planning Initial Assessment Updated by [email or web address]: Tika Khan on 12/02/18 11:51 am * Is the patient Alert and Oriented? Yes * PCP JUSTINE * [facility] * Preadmission Environment Home with Family * ADLs Independent * List name and contact numbers for known caregivers / representatives who currently or will assist patient after discharge: JOSSELYN ALLRED, * Verbal permission to speak to the caregivers and representatives has been obtained from the patient. Yes * Additional services required to return to the preadmission environment? No * Can the patient safely return to the preadmission environment? Yes * Has this patient been hospitalized within the prior 30 days at any hospital? No Patient Name: LEROY FLOREZ Page [id number] at 1153 All edits/amendments must be made on the electronic document DICTATION DATE: 12/02/181152 FREIGHT BREAKER: JOSE 12/02/18 115 RPT#: [id number] DC DATE: STATUS: ADM IN [facility] [address] [place] [address] END OF REPORT
--- NOTE | 2018-12-02 13:08 | NUR ---
VERBAL AND WRITTEN DISCHARGE INSTRUCTIONS GIVEN TO PATIENT AND SPOUSE. SALINE LOCK IS REMOVED WITH CATH TIP INTACT. DISCHARGED HOME VIA WHEELCHAIR.
--- NOTE | 2018-12-03 11:03 | MORECARE ---
CASE MANAGEMENT DISCHARGE SUMMARY PATIENT: LEROY FLOREZ UNIT: [id number] ADM DATE: 11/30/18 AGE: 68 : 46 SEX: M ROOM/BED: D.2122 AUTHOR: NANCYDOC PHYSICIAN: REFERRING PHYSICIAN: KYMBERLY LYNNE MD DATE OF SERVICE: 12/03/18 Discharge Plan Patient Name: LEROY FLOREZ Facility: [facility]:[place] : 1950 Planned Disposition: Home Anticipated Discharge Date: 12/02/18 Discharge Date: 12/02/2018 Expected LOS: 2 Initial Reviewer: [email or web address] Initial Review Date: 12/02/2018 Generated: 12/03/18 12:03 pm Comments DCP- Discharge Planning Updated by [email or web address]: Tika Khan on 12/02/18 10:[address] Patient Name: LEROY FLOREZ Admission Status: ER Accout number: [id number] Admission Date: 11-30-2018 : 1950 Admission Diagnosis: Attending: KYMBERLY LYNNE Current LOS: 2 Anticipated DC Date: 12-02-2018 Planned Disposition: Primary Insurance: [facility] [employer] SOLUTIONS Discharge Planning Comments: CM MET WITH PATIENT AND ABOUT DC PLANNING/NEEDS. STATES NO NEEDS AND WILL TAKE HOME WHEN DC'D. SHE IS AT BEDSIDE NOW. CM WILL FOLLOW AND ASSIST NEEDED WITH DC PLANNING/NEEDS. Scientific Software Engineer: Tika Khan DCPIA - Discharge Planning Initial Assessment Updated by [email or web address]: Tika Khan on 12/02/18 11:51 am * Is the patient Alert and Oriented? Yes * PCP JUSTINE * [facility] * Preadmission Environment Home with Family * ADLs Independent * List name and contact numbers for known caregivers / representatives who currently or will assist patient after discharge: JOSSELYN ALLRED, * Verbal permission to speak to the caregivers and representatives has been obtained from the patient. Yes * Additional services required to return to the preadmission environment? No * Can the patient safely return to the preadmission environment? Yes * Has this patient been hospitalized within the prior 30 days at any hospital? No Last DP export: 12/02/18 10:53 a Patient Name: LEROY FLOREZ Page [id number] at 1103 All edits/amendments must be made on the electronic document DICTATION DATE: 12/03/181102 EMERGENCY ROOM SPECIALIST: JOSE 12/03/181102 RPT#: [id number] DC DATE:12/02/18 STATUS: DIS IN [facility] [address] [facility] [place] [address] END OF REPORT
== END 2018-12-02 13:09 | disposition home or self-care (01) | DRG 248 ==
LOC: D.ER 10:05 → D.M2 11:15 → D.EDHOLD 11:15 → D.M2 17:06
PROVIDERS: Emergency Medicine; Family Medicine; Internal Medicine Interventional Cardiology; ADMIT Internal Medicine Nephrology; ATTEND Internal Medicine Nephrology
PROC: B240ZZ3 Ultrasonography of Single Coronary Artery, Intravascular (ICD-10-PCS; 2018-12-01)
PROC: 4A023N7 Measurement of Cardiac Sampling and Pressure, Left Heart, Percutaneous Approach (ICD-10-PCS; 2018-12-01)
PROC: B2111ZZ Fluoroscopy of Multiple Coronary Arteries using Low Osmolar Contrast (ICD-10-PCS; 2018-12-01)
PROC: B2151ZZ Fluoroscopy of Left Heart using Low Osmolar Contrast (ICD-10-PCS; 2018-12-01)
PROC: 02703DZ Dilation of Coronary Artery, One Artery with Intraluminal Device, Percutaneous Approach (ICD-10-PCS; principal; 2018-12-01 15:02)
PROC: 02703ZZ Dilation of Coronary Artery, One Artery, Percutaneous Approach (ICD-10-PCS; 2018-12-01 15:02)
DX: I25.110 Atherosclerotic heart disease of native coronary artery with unstable angina pectoris (principal); I50.43 Acute on chronic combined systolic (congestive) and diastolic (congestive) heart failure; T82.855A Stenosis of coronary artery stent, initial encounter; N17.9 Acute kidney failure, unspecified; J44.9 Chronic obstructive pulmonary disease, unspecified; I11.0 Hypertensive heart disease with heart failure; I08.1 Rheumatic disorders of both mitral and tricuspid valves; Y83.8 Other surgical procedures as the cause of abnormal reaction of the patient, or of later complication, without mention of misadventure at the time of the procedure; D64.9 Anemia, unspecified; E87.5 Hyperkalemia; Z95.5 Presence of coronary angioplasty implant and graft